=== PATIENT | male | born 1980 | race Caucasian/White ===

== ENCOUNTER 2019-10-15 11:01 | Inpatient (IN) | payer BC, OTHER ==
[~2019-10-15] VITALS: Ht 175 cm; Wt 68.9 kg
[2019-10-15] VITALS (10 sets, daily range): BP systolic 86–113; BP diastolic 58–66
[~2019-10-15 11:01] MED LIST: ALBU17AE23 IH; DOXY100C2 PO; HYDR1TAB8 OP; RT-ALBUTEROL/IPRATROPIUM 3 ML (DUONEB) VIAL ONE
[2019-10-15] MEDS ORDERED: MAGNESIUM SULFATE 1 GM/2 ML VIAL ONE (11:02)
[2019-10-15] MEDS ORDERED: methylPREDNISolone 125 MG (Solu-MEDROL) VIAL ONE (11:04)
[2019-10-15] MEDS ORDERED: MAGNESIUM 1 GM/100 ML IVPB 100 ML IV ONE ×2 (11:04→11:15)
[2019-10-15] MEDS ORDERED: RT-ALBUTEROL SULF 2.5 MG/3 ML PRE-MIX VIAL ONE (11:08)
[2019-10-15 11:15] LABS: BASOPHILS # (AUTO) 0.1 10^3/uL (0.0-0.1); BASOPHILS % (AUTO) 1 % (0-10); EOSINOPHILS # (AUTO) 2.2 10^3/uL (0.0-0.3); EOSINOPHILS % (AUTO) 13 % (0-10); HEMATOCRIT 45 % (40-54); HEMOGLOBIN 15.1 G/DL (13.3-17.7); LYMPHOCYTES # (AUTO) 8.6 X 10^3 (1.0-4.0); LYMPHOCYTES % (AUTO) 49 % (12-44); MEAN CORPUSCULAR HEMOGLOBIN 29 PG (25-34); MEAN CORPUSCULAR HGB CONC 34 G/DL (32-36); MEAN CORPUSCULAR VOLUME 86 FL (80-99); MEAN PLATELET VOLUME 9.4 FL (7.4-10.4); MONOCYTES # (AUTO) 1.8 X 10^3 (0.0-1.0); MONOCYTES % (AUTO) 10 % (0-12); NEUTROPHILS # (AUTO) 4.7 X 10^3 (1.8-7.8); NEUTROPHILS % (AUTO) 27 % (42-75); PLATELET COUNT 300 10^3/uL (130-400); RED CELL DISTRIBUTION WIDTH 12.8 % (10.0-14.5); WHITE BLOOD COUNT 17.4 10^3/uL (4.3-11.0)
[2019-10-15] MEDS ORDERED: KETAMINE/NaCl 50 MG/5 ML SYRINGE (ED ONLY) IV ONE (11:15)
[2019-10-15] MEDS ORDERED: RT-ALBUTEROL SULF 2.5 MG/3 ML PRE-MIX VIAL INH ONE ×2 (11:15→11:45)
[2019-10-15] MEDS ORDERED: NS IV 1000 ML 1,000 ML IV SCH (11:15)
[2019-10-15] MEDS ORDERED: methylPREDNISolone 125 MG (Solu-MEDROL) VIAL IVP ONE (11:15)
[2019-10-15] MEDS ORDERED: ONDANSETRON 4 MG/2 ML (SDV) Z0FRAN IVP ONE ×2 (11:15→11:45)
--- NOTE | 2019-10-15 11:28 | ED Respiratory ---
General Chief Complaint: Respiratory Problems Stated Complaint: ASTHMA ATTACK Nursing Triage Note: TO ROOM 05 WITH COMPLAINTS OF AN ASTHMA ATTACK. Source: patient, family Exam Limitations: no limitations History of Present Illness Date Seen by Provider: Oct 15, 2019 Time Seen by Provider: 11:24 Initial Comments To ER by private vehicle with reports of asthma attack. This began this morning. He took 2 puffs of his albuterol inhaler with improvement and then subsequent recurrence and worsening of the asthma. He's had a long-standing history of asthma. He does report a cough productive in nature with nasal drainage ongoing for several weeks. No fevers. He did have to use his son's albuterol nebulizer this morning Timing/Duration: getting worse Severity: moderate Modifying Factors: Improves With Albuterol Inhaler, Improves With Albuterol Nebulizer Associated Symptoms: cough, nasal congestion, shortness of breath, wheezing Allergies and Home Medications Allergies Coded Allergies: Egg (Unverified Allergy, Severe, RESP PROBLEMS, 08/03/10) Penicillins (Unverified Allergy, Mild, HIVES, 08/03/10) Sulfa(Sulfonamide Antibiotics) (Unverified Allergy, Mild, 08/03/10) Uncoded Allergies: Almonds (Allergy, Mild, 05/08/12) Patient Home Medication List Home Medication List Reviewed: Yes Review of Systems Review of Systems Constitutional: see HPI EENTM: see HPI, nose congestion Respiratory: see HPI, dyspnea on exertion, short of breath, wheezing Genitourinary: no symptoms reported Musculoskeletal: no symptoms reported Skin: no symptoms reported Psychiatric/Neurological: No Symptoms Reported Hematologic/Lymphatic: No Symptoms Reported Immunological/Allergic: no symptoms reported Past Isbzgxd-Guvzkc-Ydcxan Hx Patient Social History Alcohol Use: Rarely Uses Recreational Drug Use: No Smoking Status: Former Smoker Recent Foreign Travel: No Contact w/Someone Who Travel: No Recent Infectious Disease Expo: No Recent Hopitalizations: No Seasonal Allergies Seasonal Allergies: No Past Medical History Surgeries: No Respiratory: Yes Asthma Cardiac: No Neurological: No Genitourinary: No Musculoskeletal: No Endocrine: No HEENT: No Cancer: No Psychosocial: No Integumentary: No Physical Exam Vital Signs - First Documented 10/15/19 11:01 Temp 37.0 Pulse 114 Resp 24 Pulse Ox 98 O2 Delivery Nasal Cannula O2 Flow Rate 4.00 Capillary Refill : Less Than 3 Seconds Height: '" Weight: lbs. oz. kg; 22.00 BMI Method:Stated General Appearance: severe distress, other (oxygen saturation 71% with good waveform, labored breathing, speaks in short phrases.) Eyes: Bilateral Eye Normal Inspection, Bilateral Eye PERRL, Bilateral Eye EOMI HEENT: PERRL/EOMI, normal ENT inspection Neck: non-tender, full range of motion Respiratory: respiratory distress, decreased breath sounds, accessory muscle use Cardiovascular: no murmur, tachycardia Gastrointestinal: normal bowel sounds, non tender, soft Neurologic/Psychiatric: alert, normal mood/affect Skin: normal color, warm/dry Progress/Results/Core Measures Suspected Sepsis Recent Fever Within 48 Hours: No Infection Criteria Present: None New/Unexplained Altered Menta: No Sepsis Screen: No Definite Risk SIRS Temperature: Pulse: 114 Respiratory Rate: 24 Laboratory Tests 10/15/19 11:05: White Blood Count 17.4H Blood Pressure / Mean: Laboratory Tests 10/15/19 11:05: Creatinine 1.01, Platelet Count 300, Total Bilirubin 0.3 Results/Orders Lab Results Laboratory Tests Test 10/15/19 00:00 10/15/19 11:05 Range/Units White Blood Count 17.4 H 4.3-11.0 10^3/uL Red Blood Count 5.16 4.35-5.85 10^6/uL Hemoglobin 15.1 13.3-17.7 G/DL Hematocrit 45 40-54 % Mean Corpuscular Volume 86 80-99 FL Mean Corpuscular Hemoglobin 29 25-34 PG Mean Corpuscular Hemoglobin Concent 34 32-36 G/DL Red Cell Distribution Width 12.8 10.0-14.5 % Platelet Count 300 130-400 10^3/uL Mean Platelet Volume 9.4 7.4-10.4 FL Neutrophils (%) (Auto) 27 L 42-75 % Lymphocytes (%) (Auto) 49 H 12-44 % Monocytes (%) (Auto) 10 0-12 % Eosinophils (%) (Auto) 13 H 0-10 % Basophils (%) (Auto) 1 0-10 % Neutrophils # (Auto) 4.7 1.8-7.8 X 10^3 Lymphocytes # (Auto) 8.6 H 1.0-4.0 X 10^3 Monocytes # (Auto) 1.8 H 0.0-1.0 X 10^3 Eosinophils # (Auto) 2.2 H 0.0-0.3 10^3/uL Basophils # (Auto) 0.1 0.0-0.1 10^3/uL Neutrophils % (Manual) 21 % Lymphocytes % (Manual) 53 % Monocytes % (Manual) 13 % Eosinophils % (Manual) 13 % Blood Morphology Comment NORMAL Sodium Level 141 135-145 MMOL/L Potassium Level 3.9 3.6-5.0 MMOL/L Chloride Level 108 H 98-107 MMOL/L Carbon Dioxide Level 23 21-32 MMOL/L Anion Gap 10 5-14 MMOL/L Blood Urea Nitrogen 13 7-18 MG/DL Creatinine 1.01 0.60-1.30 MG/DL Estimat Glomerular Filtration Rate > 60 BUN/Creatinine Ratio 13 Glucose Level 109 H 70-105 MG/DL Calcium Level 8.4 L 8.5-10.1 MG/DL Corrected Calcium 8.2 L 8.5-10.1 MG/DL Total Bilirubin 0.3 0.1-1.0 MG/DL Aspartate Amino Transf (AST/SGOT) 18 5-34 U/L Alanine Aminotransferase (ALT/SGPT) 18 0-55 U/L Alkaline Phosphatase 83 40-136 U/L Total Protein 7.0 6.4-8.2 GM/DL Albumin 4.3 3.2-4.5 GM/DL My Orders Orders - ROMERO CUNHA [employer] Magnesium 1 Gm/100 Ml Ivpb (Magnesium Purvis (10/15/19 11:04) Methylprednisolone Sod Succ (Solu-Medrol (10/15/19 11:04) Cbc With Automated Diff (10/15/19 11:08) Arterial Blood Gas (10/15/19 11:08) Ed Iv/Invasive Line Start (10/15/19 11:08) Albuterol Pre-Mix Nebs (Rt) (Proventil (10/15/19 11:15) Svn Small Volume Nebulizer (10/15/19 11:08) Methylprednisolone Sod Succ (Solu-Medrol (10/15/19 11:15) Magnesium 1 Gm/100 Ml Ivpb (Magnesium Purvis (10/15/19 11:15) Ketamine Syringe (Ed Only) (Ketamine Syr (10/15/19 11:15) Ondansetron Injection (Zofran Injectio (10/15/19 11:15) Ns Iv 1000 Ml (Sodium Chloride 0.9%) (10/15/19 11:15) Albuterol Pre-Mix Nebs (Rt) (Proventil (10/15/19 11:08) Manual Differential (10/15/19 11:05) Chest 1 View, Ap/Pa Only (10/15/19 11:29) Ondansetron Injection (Zofran Injectio (10/15/19 11:45) Albuterol Pre-Mix Nebs (Rt) (Proventil (10/15/19 11:45) Svn Small Volume Nebulizer (10/15/19 11:39) Comprehensive Metabolic Panel (10/15/19 11:43) Albuterol/Ipra Inhalation Soln (Duoneb I (10/15/19 11:45) Svn Small Volume Nebulizer (10/15/19 11:45) Promethazine Injection (Phenergan Injec (10/15/19 12:00) Medications Given in ED Current Medications Medications Dose Ordered Sig/Mayra Route Start Time Stop Time Status Last Admin Dose Admin Albuterol Sulfate 7.5 mg ONCE ONCE INH 10/15/19 11:45 10/15/19 11:46 DC 10/15/19 11:51 7.5 MG Albuterol Sulfate 12 mg ONCE ONCE INH 10/15/19 11:15 10/15/19 11:16 DC 10/15/19 11:27 12 MG Albuterol/ Ipratropium 3 ml ONCE ONCE INH 10/15/19 11:45 10/15/19 11:47 DC 10/15/19 11:05 3 ML Ketamine HCl 35 mg ONCE ONCE IV 10/15/19 11:15 10/15/19 11:16 DC 10/15/19 11:19 35 MG Magnesium Sulfate/ Dextrose 100 ml @ 100 mls/hr ONCE ONCE IV 10/15/19 11:15 10/15/19 12:14 10/15/19 11:16 100 MLS/HR Methylprednisolone Sodium Succinate 125 mg ONCE ONCE IVP 10/15/19 11:15 10/15/19 11:16 DC 10/15/19 11:16 125 MG Ondansetron HCl 4 mg ONCE ONCE IVP 10/15/19 11:15 10/15/19 11:16 DC 10/15/19 11:15 4 MG Ondansetron HCl 4 mg ONCE ONCE IVP 10/15/19 11:45 10/15/19 11:46 DC 10/15/19 11:37 4 MG Promethazine HCl 12.5 mg ONCE ONCE IVP 10/15/19 12:00 10/15/19 12:01 DC 10/15/19 11:58 12.5 MG Vital Signs/I&O 10/15/19 10/15/19 10/15/19 10/15/19 11:01 11:01 11:16 11:45 Temp 37.0 Pulse 114 Resp 24 B/P (MAP) Pulse Ox 98 73 98 97 O2 Delivery Nasal Cannula Room Air Nasal Cannula Nasal Cannula O2 Flow Rate 4.00 2.00 2.00 Capillary Refill : Less Than 3 Seconds Diagnostic Imaging Diagonstic Imaging: Xray Comments NAME: RAYMOND MONROE [facility] REC#: [id number] PT STATUS: REG ER : 1980 PHYSICIAN: ROMERO CUNHA APRN ADMIT DATE: 10/15/19/ER Draft Date of Exam:10/15/19 CHEST 1 VIEW, AP/PA ONLY INDICATION: Asthma attack. TIME OF EXAM: 11:59 a.m. COMPARISON: No prior studies are available for comparison. FINDINGS: The lungs are clear. No infiltrates are seen. The pulmonary vascularity is normal. The heart size is normal. No effusion or pneumothorax is identified. IMPRESSION: No acute cardiopulmonary process is detected. Dictated on workstation # [id number] Dict: 10/15/19 1204 Trans: 10/15/19 1206 [facility] [id number] Interpreted by: RICARDO ALONSO MD Electronically signed by: Departure Communication (Admissions) On arrival he had essentially no lung sounds, very labored breathing. We started IV access given 125 mg of IV Solu-Medrol, magnesium sulfate 1 g over 15 minutes, Ativan 0.5 mg/kg IV as a bolus. We also started an hour long albuterol treatment during this time towards the end of these interventions he started to have some wheezing on auscultation which was not present initially, indicative of increasing air movement. Oxygen saturation 100% on 3 L and receiving an hour- long breathing treatment on room air. 1140-patient vomited into his nebulizer skilled nursing through the hour-long treatment. For this reason additional 7.5 mg of albuterol was ordered. Also Zofran additional 4 mg ordered. 1202-now has audible wheezing both inspiratory and expiratory. Oxygen saturation 97% on 2 L. His respiratory effort is markedly improved without accessory muscle use near as much as on arrival. He states he is feeling much better. He has had a couple episodes of vomiting from the ketamine, it seems to have subsided at this point. Impression Primary Impression: Asthma exacerbation Qualified Codes: J45.901 - Unspecified asthma with (acute) exacerbation Disposition: ADMITTED INPATIENT Condition: Stable Admissions Decision to Admit Reason: Admit from ER (General) Decision to Admit/Date: Oct 15, 2019 Time/Decision to Admit Time: 11:27 Departure-Patient Inst. Referrals: [facility] (PCP/Family) Primary Care Physician ROMERO CUNHA APRN Oct 15, 2019 11:28
[2019-10-15 11:44] LABS: EOSINOPHILS % (MANUAL) 13 %; LYMPHOCYTES % (MANUAL) 53 %; MONOCYTES % (MANUAL) 13 %; NEUTROPHILS % (MANUAL) 21 %; RBC MORPH NORMAL
[2019-10-15] MEDS ORDERED: RT-ALBUTEROL/IPRATROPIUM 3 ML (DUONEB) VIAL INH ONE (11:45)
[2019-10-15] MEDS ORDERED: PROMETHAZINE INJ 25 MG/ML (PHENERGAN) AMP IVP ONE (12:00)
[2019-10-15 12:01] LABS: ALANINE AMINOTRANSFERASE 18 U/L (0-55); ALBUMIN 4.3 GM/DL (3.2-4.5); ALKALINE PHOSPHATASE 83 U/L (40-136); BILIRUBIN,TOTAL 0.3 MG/DL (0.1-1.0); BUN/CREATININE RATIO 13; CALCIUM 8.4 MG/DL (8.5-10.1); CARBON DIOXIDE 23 MMOL/L (21-32); CHLORIDE 108 MMOL/L (98-107); CREATININE SERUM 1.01 MG/DL (0.60-1.30); GFR ESTIMATED > 60; GLUCOSE 109 MG/DL (70-105); POTASSIUM 3.9 MMOL/L (3.6-5.0); SODIUM 141 MMOL/L (135-145)
--- NOTE | 2019-10-15 12:06 | Diagnostic Imaging Report ---
INDICATION: Asthma attack. TIME OF EXAM: 11:59 a.m. COMPARISON: No prior studies are available for comparison. FINDINGS: The lungs are clear. No infiltrates are seen. The pulmonary vascularity is normal. The heart size is normal. No effusion or pneumothorax is identified. IMPRESSION: No acute cardiopulmonary process is detected. Dictated by: Dictated on workstation # [id number]
--- NOTE | 2019-10-15 12:20 | NUR ---
Pt feeling much better at this time. Pt reports feeling as if ketamine has worn off. Pt still wheezing, but is breathing more comfortably at this time.
--- NOTE | 2019-10-15 12:37 | NUR ---
Pt's ICU room is being cleaned.
[2019-10-15] MEDS ORDERED: CATHETER FLUSH 10 ML SYR IV PRN (14:00)
[2019-10-15] MEDS ORDERED: methylPREDNISolone 125 MG (Solu-MEDROL) VIAL IV SCH ×2 (14:00→14:45)
[2019-10-15] MEDS ORDERED: NS W/KCL 40 MEQ/L 1,000 ML IV SCH (14:00)
[2019-10-15] MEDS ORDERED: RT-ALBUINH INH (14:41)
[2019-10-15] MEDS ORDERED: RT-ALBUTEROL/IPRATROPIUM 3 ML (DUONEB) VIAL ONE (14:43)
--- NOTE | 2019-10-15 14:44 | Occ Therapy Progress Note ---
Therapy Progress Note Received order for OT eval and treat. Chart review completed. Spoke with RN who states pt does not need OT services at this time. Will discontinue OT. LUIS MARQUEZ OT Oct 15, 2019 14:43
[2019-10-15] MEDS: RT-ALBUTEROL/IPRATROPIUM 3 ML (DUONEB) VIAL INH SCH ×3 (14:48→21:51)
--- NOTE | 2019-10-15 14:51 | Pulmonary Consultation ---
History of Present Illness History of Present Illness Date Seen by Provider: Oct 15, 2019 Time Seen by Provider: 14:47 Date of Admission Allergies and Home Medications Allergies Coded Allergies: egg (Unverified Allergy, Severe, RESP PROBLEMS, 08/03/10) Penicillins (Unverified Allergy, Mild, HIVES, 08/03/10) Sulfa (Sulfonamide Antibiotics) (Unverified Allergy, Mild, 08/03/10) Uncoded Allergies: Almonds (Allergy, Mild, 05/08/12) Chicken (Allergy, Unknown, 10/15/19) Home Medications Albuterol Sulfate 1 Puff Puff, 2 PUFF INH Q4H PRN for SHORTNESS OF BREATH, (Reported) Past Octzfcz-Utwexp-Xsbngg Hx Patient Social History Alcohol Use: Rarely Uses Recreational Drug Use: No Smoking Status: Former Smoker Recent Foreign Travel: No Contact w/Someone Who Travel: No Recent Infectious Disease Expo: No Recent Hopitalizations: No Seasonal Allergies Seasonal Allergies: No Past Medical History Surgeries: No Respiratory: Yes Asthma Cardiac: No Neurological: No Genitourinary: No Musculoskeletal: No Endocrine: No HEENT: No Cancer: No Psychosocial: No Integumentary: No Sepsis Event Evaluation Height, Weight, BMI Height: '" Weight: lbs. oz. kg; 22.56 BMI Method:Stated Exam Exam Vital Signs Date Time Temp Pulse Resp B/P (MAP) Pulse Ox O2 Delivery O2 Flow Rate FiO2 10/15/19 14:13 96 Room Air 10/15/19 13:51 122 10/15/19 13:40 37.0 107 22 112/91 99 Room Air 10/15/19 11:45 97 Nasal Cannula 2.00 10/15/19 11:16 98 Nasal Cannula 2.00 10/15/19 11:01 37.0 114 24 73 Room Air 10/15/19 11:01 98 Nasal Cannula 4.00 Height & Weight Height: '" Weight: lbs. oz. kg; 22.56 BMI Method:Stated Capillary Refill: Less Than 3 Seconds Gastrointestinal: normal bowel sounds, non tender, soft Results Lab Laboratory Tests 10/15/19 11:05 Assessment/Plan Assessment/Plan Asthma AE -Duonebs Q 4 -Pulmicort -IVF -Solumedrol Leukocytosis r/o PNA -Start Levaquin -PT is allergic to PCNs -Check urine strep/legionella ag -Check influenza and MRSA swabs - NIMA GOMEZ DO Oct 15, 2019 14:51
[2019-10-15] MEDS: LEVOFLOXACIN 750 MG/150 ML IV 150 ML IV SCH (15:05)
[2019-10-15] MEDS: LACTATED RINGERS 1,000 ML IV SCH ×5 (15:05→23:48)
[2019-10-15] MEDS ORDERED: RT-ALBUTEROL/IPRATROPIUM 3 ML (DUONEB) VIAL INH PRN (16:00)
--- NOTE | 2019-10-15 16:54 | NUR ---
1645 DUE TO CHANGES IN STAFFING CARE OF PT TO THIS RN. PT SITTING UP IN BED WATCHING TELEVISION, PT VERBALIZES NO C/O. THIS RN AGREES WITH PREVIOUS NURSES ASSESSMENT. CALL LIGHT AND OTHER PERSONAL ITEMS WITHIN REACH, WILL CONTINUE TO MONITOR.
[2019-10-15 17:24] LABS: BILIRUBIN,URINE NEGATIVE (NEGATIVE); CLARITY,URINE CLEAR; COLOR,URINE YELLOW; GLUCOSE, URINE (UA) NEGATIVE (NEGATIVE); KETONES,URINE NEGATIVE (NEGATIVE); LEUKOCYTE ESTERASE ,URINE NEGATIVE (NEGATIVE); NITRITE,URINE NEGATIVE (NEGATIVE); PROTEIN,URINE NEGATIVE (NEGATIVE)
[2019-10-15] MEDS: methylPREDNISolone 40 MG/ML (Solu-MEDROL) VIAL IV SCH ×2 (17:43→23:56)
[2019-10-15 17:44] LABS: AMPHETAMINE SCREEN, URINE NEGATIVE (NEGATIVE); BARBITURATE SCREEN URINE NEGATIVE (NEGATIVE); BENZODIAZEPINES SCREEN URINE NEGATIVE (NEGATIVE); CANNABINOID SCREEN, URINE NEGATIVE (NEGATIVE); COCAINE SCREEN URINE NEGATIVE (NEGATIVE); METHADONE STAT NEGATIVE (NEGATIVE); METHAMPHETAMINE SCREEN URINE S NEGATIVE (NEGATIVE); OPIATE SCREEN URINE NEGATIVE (NEGATIVE); OXYCODONE STAT NEGATIVE (NEGATIVE); PROPOXYPHENE STAT NEGATIVE (NEGATIVE); TRICYCLIC ANTIDEPRESSANTS SCRE NEGATIVE (NEGATIVE)
[2019-10-15 17:57] LABS: AMORPHOUS SEDIMENT,UR FEW AMOR URATES /LPF; BACTERIA,URINE TRACE /HPF; WBC,URINE 0-2 /HPF
[2019-10-15] MEDS ORDERED: RT-BUDESONIDE NEBS 0.5 MG/2ML (PULMICORT) AMP INH SCH (21:00)
[2019-10-16] VITALS (12 sets, daily range): BP systolic 100–131; BP diastolic 57–75
[2019-10-16] MEDS: RT-ALBUTEROL/IPRATROPIUM 3 ML (DUONEB) VIAL INH SCH ×6 (02:15→22:51)
[2019-10-16 03:25] LABS: BASOPHILS % (AUTO) 0 % (0-10); EOSINOPHILS % (AUTO) 0 % (0-10); HEMATOCRIT 39 % (40-54); HEMOGLOBIN 13.1 G/DL (13.3-17.7); LYMPHOCYTES # (AUTO) 1.1 X 10^3 (1.0-4.0); LYMPHOCYTES % (AUTO) 5 % (12-44); MEAN CORPUSCULAR HEMOGLOBIN 29 PG (25-34); MEAN CORPUSCULAR HGB CONC 34 G/DL (32-36); MEAN CORPUSCULAR VOLUME 86 FL (80-99); MEAN PLATELET VOLUME 10.2 FL (7.4-10.4); MONOCYTES # (AUTO) 0.6 X 10^3 (0.0-1.0); MONOCYTES % (AUTO) 3 % (0-12); NEUTROPHILS % (AUTO) 92 % (42-75); PLATELET COUNT 225 10^3/uL (130-400); RED CELL DISTRIBUTION WIDTH 12.8 % (10.0-14.5); WHITE BLOOD COUNT 21.7 10^3/uL (4.3-11.0)
[2019-10-16 03:54] LABS: ALANINE AMINOTRANSFERASE 15 U/L (0-55); ALBUMIN 3.7 GM/DL (3.2-4.5); ALKALINE PHOSPHATASE 57 U/L (40-136); BILIRUBIN,TOTAL 0.3 MG/DL (0.1-1.0); BUN/CREATININE RATIO 12; CALCIUM 8.9 MG/DL (8.5-10.1); CARBON DIOXIDE 19 MMOL/L (21-32); CHLORIDE 110 MMOL/L (98-107); CREATININE SERUM 0.84 MG/DL (0.60-1.30); GFR ESTIMATED > 60; GLUCOSE 152 MG/DL (70-105); PHOSPHORUS 2.5 MG/DL (2.3-4.7); SODIUM 141 MMOL/L (135-145); TOTAL PROTEIN 5.9 GM/DL (6.4-8.2)
--- NOTE | 2019-10-16 05:40 | Pulmonary Progress Note ---
Subjective Time Seen by a Provider: 05:41 Subjective/Events-last exam Pt is doing much better today. Will transfer to 4th floor. Sepsis Event Evaluation Height, Weight, BMI Height: '" Weight: lbs. oz. kg; 22.56 BMI Method:Stated Exam Exam Vital Signs Date Time Temp Pulse Resp B/P (MAP) Pulse Ox O2 Delivery O2 Flow Rate FiO2 10/16/19 05:00 106 16 107/67 (80) 94 Room Air 10/16/19 04:00 105 19 109/65 (80) 95 Room Air 10/16/19 03:55 36.3 10/16/19 03:54 93 Room Air 10/16/19 03:00 96 14 106/65 (79) 95 Room Air 10/16/19 02:00 103 15 102/62 (75) 94 Room Air 10/16/19 01:00 111 10/16/19 01:00 107 13 111/63 (79) 96 Room Air 10/16/19 00:00 36.6 10/16/19 00:00 118 22 131/70 (90) 96 Room Air 10/16/19 00:00 96 Room Air 10/15/19 23:00 123 17 108/58 (75) 96 Room Air 10/15/19 22:00 118 17 112/60 (77) 98 Room Air 10/15/19 21:52 97 Room Air 10/15/19 21:00 117 15 109/63 (78) 98 Room Air 10/15/19 20:00 36.4 10/15/19 20:00 117 18 86/61 (69) 96 Room Air 10/15/19 20:00 96 Room Air 10/15/19 19:00 118 19 107/66 (80) 98 Room Air 10/15/19 19:00 123 10/15/19 18:34 100 Room Air 10/15/19 18:00 112 18 102/62 (75) 97 Room Air 10/15/19 17:00 120 15 109/64 (79) 97 Room Air 10/15/19 16:00 110 17 105/58 (74) 97 Room Air 10/15/19 16:00 36.9 10/15/19 15:22 97 Room Air 10/15/19 15:00 123 10 113/65 (81) 96 Room Air 10/15/19 14:48 97 Room Air 10/15/19 14:13 96 Room Air 10/15/19 14:00 117 16 101/66 (78) 96 Room Air 10/15/19 13:51 122 10/15/19 13:40 37.0 107 22 112/91 99 Room Air 10/15/19 11:45 97 Nasal Cannula 2.00 10/15/19 11:16 98 Nasal Cannula 2.00 10/15/19 11:01 37.0 114 24 73 Room Air 10/15/19 11:01 98 Nasal Cannula 4.00 I & O 10/16/19 07:00 Intake Total 4410 ml Output Total 4025 ml Balance 385 ml Height & Weight Height: '" Weight: lbs. oz. kg; 22.56 BMI Method:Stated General Appearance: No Apparent Distress, WD/WN, Anxious HEENT: PERRL/EOMI, Normal ENT Inspection, Pharynx Normal Neck: Full Range of Motion, Non Tender, Supple Respiratory: Chest Non Tender, No Accessory Muscle Use, No Respiratory Distress, Decreased Breath Sounds, Wheezing Cardiovascular: Regular Rate, Rhythm, No Edema Capillary Refill: Less Than 3 Seconds Gastrointestinal: normal bowel sounds, non tender, soft Extremity: Normal Capillary Refill, Normal Inspection, No Pedal Edema Neurologic/Psychiatric: Alert, Oriented x3 Skin: Normal Color, Warm/Dry Lymphatic: No Adenopathy Results Lab Laboratory Tests 10/15/19 11:05 10/16/19 02:52 Assessment/Plan Assessment/Plan Asthma AE -Duonebs Q 4 -Pulmicort -- change to Advair -IVF -Solumedrol -- Change to prednisone taper. Leukocytosis r/o PNA -Start Levaquin -PT is allergic to PCNs -Check urine strep/legionella ag -Check influenza and MRSA swabs NIMA GOMEZ DO Oct 16, 2019 05:40
[2019-10-16] MEDS: LACTATED RINGERS 1,000 ML IV SCH (05:49)
[2019-10-16] MEDS ORDERED: RT-ADVAIR HFA 115/21 MCG PER PUFF IH ONE (06:12)
[2019-10-16] MEDS ORDERED: RT-BUDESONIDE NEBS 0.5 MG/2ML (PULMICORT) AMP ONE (06:12)
[2019-10-16] MEDS: RT-ADVAIR HFA 115/21 MCG PER PUFF IH SCH ×2 (07:29→19:17)
[2019-10-16] MEDS: predniSONE 10 MG TAB PO SCH (07:55)
--- NOTE | 2019-10-16 09:06 | History & Physical ---
HPI History of Present Illness: Had severe shortness of breath yesterday morning. He doesn't know what caused it. He normally uses albuterol inhaler relatively rarely, in the summer maybe every 3-4 days, since the fall and winter had been needing twice per day. As a child was on inhaled steroids but hasn't been recently. He denies illness prior to this, but does have chronic sinus congestion for which he had taken claritin. No fever, feels he had cough related to sinus drainage. Date seen by provider: Oct 16, 2019 Time Seen by Provider: 10:23 Attending Physician Octavia Cummins MD PCP [place] [place] Consult Date of Admission Oct 15, 2019 at 12:09 Home Medications Home Medications Reviewed patient Home Medication Reconciliation performed by pharmacy medication reconciliations microwave technician and/or nursing. Patients Allergies have been reviewed. Allergies Coded Allergies: egg (Unverified Allergy, Severe, RESP PROBLEMS, 08/03/10) Penicillins (Unverified Allergy, Mild, HIVES, 08/03/10) Sulfa (Sulfonamide Antibiotics) (Unverified Allergy, Mild, 08/03/10) Uncoded Allergies: Almonds (Allergy, Mild, 05/08/12) Chicken (Allergy, Unknown, 10/15/19) SBD-Nakgtr-Blwbgi Hx Patient Social History Alcohol Use: Rarely Uses Recreational Drug Use: No Smoking Status: Former Smoker Recent Foreign Travel: No Contact w/other who traveled: No Recent Hopitalizations: No Recent Infectious Disease Expo: No Past Medical History PMHx: Asthma Allergies PSurgHx: Denies Family Medical History Significant Family History: Heart Disease (both grandfathers) Review of Systems ([facility]) Constitutional: No fever EENTM: nose congestion Respiratory: see HPI Cardiovascular: No chest pain Gastrointestinal: No abdominal pain, No constipation, No diarrhea, No nausea; vomiting (occasional vomiting mucous in the morning when he has a lot of congestion) Genitourinary: No dysuria Musculoskeletal: No joint pain, No muscle pain Skin: No rash Psychiatric/Neurological: Denies Anxiety, Denies Depressed Reviewed Test Results Reviewed Test Results Lab Laboratory Tests Test 10/15/19 11:05 10/15/19 16:20 10/16/19 02:52 Range/Units White Blood Count 17.4 H 21.7 H 4.3-11.0 10^3/uL Red Blood Count 5.16 4.48 4.35-5.85 10^6/uL Hemoglobin 15.1 13.1 L 13.3-17.7 G/DL Hematocrit 45 39 L 40-54 % Mean Corpuscular Volume 86 86 80-99 FL Mean Corpuscular Hemoglobin 29 29 25-34 PG Mean Corpuscular Hemoglobin Concent 34 34 32-36 G/DL Red Cell Distribution Width 12.8 12.8 10.0-14.5 % Platelet Count 300 225 130-400 10^3/uL Mean Platelet Volume 9.4 10.2 7.4-10.4 FL Neutrophils (%) (Auto) 27 L 92 H 42-75 % Lymphocytes (%) (Auto) 49 H 5 L 12-44 % Monocytes (%) (Auto) 10 3 0-12 % Eosinophils (%) (Auto) 13 H 0 0-10 % Basophils (%) (Auto) 1 0 0-10 % Neutrophils # (Auto) 4.7 20.0 H 1.8-7.8 X 10^3 Lymphocytes # (Auto) 8.6 H 1.1 1.0-4.0 X 10^3 Monocytes # (Auto) 1.8 H 0.6 0.0-1.0 X 10^3 Eosinophils # (Auto) 2.2 H 0.0 0.0-0.3 10^3/uL Basophils # (Auto) 0.1 0.0 0.0-0.1 10^3/uL Neutrophils % (Manual) 21 % Lymphocytes % (Manual) 53 % Monocytes % (Manual) 13 % Eosinophils % (Manual) 13 % Blood Morphology Comment NORMAL Sodium Level 141 141 135-145 MMOL/L Potassium Level 3.9 4.0 3.6-5.0 MMOL/L Chloride Level 108 H 110 H 98-107 MMOL/L Carbon Dioxide Level 23 19 L 21-32 MMOL/L Anion Gap 10 12 5-14 MMOL/L Blood Urea Nitrogen 13 10 7-18 MG/DL Creatinine 1.01 0.84 0.60-1.30 MG/DL Estimat Glomerular Filtration Rate > 60 > 60 BUN/Creatinine Ratio 13 12 Glucose Level 109 H 152 H 70-105 MG/DL Calcium Level 8.4 L 8.9 8.5-10.1 MG/DL Corrected Calcium 8.2 L 9.1 8.5-10.1 MG/DL Total Bilirubin 0.3 0.3 0.1-1.0 MG/DL Aspartate Amino Transf (AST/SGOT) 18 12 5-34 U/L Alanine Aminotransferase (ALT/SGPT) 18 15 0-55 U/L Alkaline Phosphatase 83 57 40-136 U/L Total Protein 7.0 5.9 L 6.4-8.2 GM/DL Albumin 4.3 3.7 3.2-4.5 GM/DL Urine Color YELLOW Urine Clarity CLEAR Urine pH 6.0 5-9 Urine Specific [place] 1.020 1.016-1.022 Urine Protein NEGATIVE NEGATIVE Urine Glucose (UA) NEGATIVE NEGATIVE Urine Ketones NEGATIVE NEGATIVE Urine Nitrite NEGATIVE NEGATIVE Urine Bilirubin NEGATIVE NEGATIVE Urine Urobilinogen 0.2 < = 1.0 MG/DL Urine Leukocyte Esterase NEGATIVE NEGATIVE Urine RBC (Auto) NEGATIVE NEGATIVE Urine RBC NONE /HPF Urine WBC 0-2 /HPF Urine Crystals PRESENT H /LPF Urine Amorphous Sediment FEW DYLAN URATES H /LPF Urine Bacteria TRACE /HPF Urine Casts NONE /LPF Urine Mucus SMALL H /LPF Urine Culture Indicated NO Urine Opiates Screen NEGATIVE NEGATIVE Urine Oxycodone Screen NEGATIVE NEGATIVE Urine Methadone Screen NEGATIVE NEGATIVE Urine Propoxyphene Screen NEGATIVE NEGATIVE Urine Barbiturates Screen NEGATIVE NEGATIVE Ur Tricyclic Antidepressants Screen NEGATIVE NEGATIVE Urine Phencyclidine Screen NEGATIVE NEGATIVE Urine Amphetamines Screen NEGATIVE NEGATIVE Urine Methamphetamines Screen NEGATIVE NEGATIVE Urine Benzodiazepines Screen NEGATIVE NEGATIVE Urine Cocaine Screen NEGATIVE NEGATIVE Urine Cannabinoids Screen NEGATIVE NEGATIVE Phosphorus Level 2.5 2.3-4.7 MG/DL Magnesium Level 2.0 1.6-2.4 MG/DL Physical Exam-([facility]) Physical Exam Vital Signs VS - Last 72 Hours, by Label 10/15/19 10/15/19 10/15/19 10/15/19 11:01 11:01 11:16 11:45 Temp 37.0 Pulse 114 Resp 24 B/P (MAP) Pulse Ox 98 73 98 97 O2 Delivery Nasal Cannula Room Air Nasal Cannula Nasal Cannula O2 Flow Rate 4.00 2.00 2.00 10/15/19 10/15/19 10/15/19 10/15/19 13:40 13:51 14:00 14:13 Temp 37.0 Pulse 107 122 117 Resp 22 16 B/P (MAP) 112/91 101/66 (78) Pulse Ox 99 96 96 O2 Delivery Room Air Room Air Room Air 10/15/19 10/15/19 10/15/19 10/15/19 14:48 15:00 15:22 16:00 Temp 36.9 Pulse 123 Resp 10 B/P (MAP) 113/65 (81) Pulse Ox 97 96 97 O2 Delivery Room Air Room Air Room Air 10/15/19 10/15/19 10/15/19 10/15/19 16:00 17:00 18:00 18:34 Pulse 110 120 112 Resp 17 15 18 B/P (MAP) 105/58 (74) 109/64 (79) 102/62 (75) Pulse Ox 97 97 97 100 O2 Delivery Room Air Room Air Room Air Room Air 10/15/19 10/15/19 10/15/19 10/15/19 19:00 19:00 20:00 20:00 Pulse 123 118 117 Resp 19 18 B/P (MAP) 107/66 (80) 86/61 (69) Pulse Ox 98 96 96 O2 Delivery Room Air Room Air Room Air 10/15/19 10/15/19 10/15/19 10/15/19 20:00 21:00 21:52 22:00 Temp 36.4 Pulse 117 118 Resp 15 17 B/P (MAP) 109/63 (78) 112/60 (77) Pulse Ox 98 97 98 O2 Delivery Room Air Room Air Room Air 10/15/19 10/16/19 10/16/19 10/16/19 23:00 00:00 00:00 00:00 Temp 36.6 Pulse 123 118 Resp 17 22 B/P (MAP) 108/58 (75) 131/70 (90) Pulse Ox 96 96 96 O2 Delivery Room Air Room Air Room Air 10/16/19 10/16/19 10/16/19 10/16/19 01:00 01:00 02:00 03:00 Pulse 107 111 103 96 Resp 13 15 14 B/P (MAP) 111/63 (79) 102/62 (75) 106/65 (79) Pulse Ox 96 94 95 O2 Delivery Room Air Room Air Room Air 10/16/19 10/16/19 10/16/19 10/16/19 03:54 03:55 04:00 05:00 Temp 36.3 Pulse 105 106 Resp 19 16 B/P (MAP) 109/65 (80) 107/67 (80) Pulse Ox 93 95 94 O2 Delivery Room Air Room Air Room Air 10/16/19 10/16/19 10/16/19 10/16/19 06:00 07:00 07:00 07:30 Pulse 108 104 103 Resp 18 14 B/P (MAP) 101/75 (84) 100/73 (82) Pulse Ox 94 96 98 O2 Delivery Room Air Room Air Room Air 10/16/19 10/16/19 10/16/19 10/16/19 07:35 07:55 08:00 08:00 Temp 36.6 Pulse 135 Resp 20 B/P (MAP) 111/64 (80) Pulse Ox 89 98 O2 Delivery Room Air Room Air Room Air Capillary Refill : Less Than 3 Seconds General Appearance: WD/WN, no apparent distress Respiratory: No decreased breath sounds, No accessory muscle use; wheezing Cardiovascular: no murmur, tachycardia Gastrointestinal: normal bowel sounds, non tender, soft Extremities: no pedal edema Neurologic/Psychiatric: alert, normal mood/affect Skin: normal color, warm/dry Assessment/Plan Assessment/Plan Admission Status: Inpatient Order (span 2 midnights) Reason for Inpatient Admission: Severe asthma exacerbation with hypoxia, will require steroid tapers (1) Asthma exacerbation Status: Acute Assessment & Plan: Continue inhaled steroid, Duonebs. Solumedrol changed to prednisone today. On room air this am, markedly improved but still wheezing. Qualifiers: Qualified Codes: J45.51 - Severe persistent asthma with (acute) exacerbation (2) Leukocytosis Status: Acute Assessment & Plan: Suspect related to steroids and reactive, started on levofloxacin per Dr. Hernandez. (3) DVT prophylaxis Status: Acute Assessment & Plan: Low risk, ambulate. Clinical Quality Measures DVT/VTE Risk/Contraindication: RFS Level Per Nursing on Admit: 0=No Risk/No VTE PPX Copy Copies To 1: NICHOL TORRES MD, BETHANY N MD Oct 16, 2019 09:06
--- NOTE | 2019-10-16 09:14 | Diagnostic Imaging Report ---
INDICATION: Asthma, shortness of breath COMPARISON: 10/15/2019 FINDINGS: Single view of the chest demonstrates clear lungs bilaterally. The heart is normal. There is no pneumothorax. Osseous structures normal. IMPRESSION: Negative chest Dictated by: Dictated on workstation # [id number]
[2019-10-16] MEDS: LEVOFLOXACIN 750 MG/150 ML IV 150 ML IV SCH (14:54)
--- NOTE | 2019-10-16 16:01 | NUR ---
1545 PT TO ROOM 409 VIA W/C ACCOMPANIED BY THIS RN, REPORT GIVEN TO TIFFANIE ROBERTS. ALL PERSONAL BELONGINGS SENT WITH PT.
[2019-10-17 00:05] VITALS: BP 120/72
[2019-10-17 04:00] VITALS: BP 108/57
--- NOTE | 2019-10-17 05:49 | Pulmonary Progress Note ---
Subjective Time Seen by a Provider: 05:48 Subjective/Events-last exam Pt appears to be doing better. Sepsis Event Evaluation Height, Weight, BMI Height: '" Weight: lbs. oz. kg; 22.56 BMI Method:Stated Exam Exam Vital Signs Date Time Temp Pulse Resp B/P (MAP) Pulse Ox O2 Delivery O2 Flow Rate FiO2 10/17/19 04:00 36.7 115 20 108/57 (74) 96 Room Air 10/17/19 02:26 95 Room Air 10/17/19 00:05 36.8 114 20 120/72 (88) 95 Room Air 10/16/19 22:51 95 Room Air 10/16/19 20:11 36.8 123 20 104/57 (73) 96 Room Air 10/16/19 20:10 95 Room Air 10/16/19 19:15 98 Room Air 10/16/19 16:24 37.3 125 22 106/69 (81) 93 Room Air 10/16/19 15:02 91 Room Air 10/16/19 13:00 113 10/16/19 11:35 37.0 118 18 106/74 (85) 93 Room Air 10/16/19 08:00 98 Room Air 10/16/19 08:00 135 20 111/64 (80) 89 Room Air 10/16/19 07:55 36.6 10/16/19 07:35 Room Air 10/16/19 07:30 98 Room Air 10/16/19 07:00 103 14 100/73 (82) 96 Room Air 10/16/19 07:00 104 10/16/19 06:00 108 18 101/75 (84) 94 Room Air I & O 10/17/19 07:00 Intake Total 1790 ml Output Total 1550 ml Balance 240 ml Height & Weight Height: '" Weight: lbs. oz. kg; 22.56 BMI Method:Stated General Appearance: No Apparent Distress, WD/WN, Anxious HEENT: PERRL/EOMI, Normal ENT Inspection, Pharynx Normal Neck: Full Range of Motion, Non Tender, Supple Respiratory: Chest Non Tender, No Accessory Muscle Use, No Respiratory Distress, Decreased Breath Sounds, Wheezing Cardiovascular: Regular Rate, Rhythm, No Edema Capillary Refill: Less Than 3 Seconds Gastrointestinal: normal bowel sounds, non tender, soft Extremity: Normal Capillary Refill, Normal Inspection, No Pedal Edema Neurologic/Psychiatric: Alert, Oriented x3 Skin: Normal Color, Warm/Dry Lymphatic: No Adenopathy Results Lab Laboratory Tests 10/15/19 11:05 10/16/19 02:52 Assessment/Plan Assessment/Plan Asthma AE -Duonebs Q 4 - Advair -Solumedrol -- Change to prednisone taper. Leukocytosis r/o PNA -Levaquin -PT is allergic to PCNs -Check urine strep/legionella ag -Check influenza and MRSA swabs NIMA GOMEZ DO Oct 17, 2019 05:49
[2019-10-17] MEDS: RT-ADVAIR HFA 115/21 MCG PER PUFF IH SCH (06:35)
[2019-10-17] MEDS: RT-ALBUTEROL/IPRATROPIUM 3 ML (DUONEB) VIAL INH SCH ×2 (06:35→10:42)
[2019-10-17 08:00] VITALS: BP 121/85
[2019-10-17] MEDS: predniSONE 10 MG TAB PO SCH (08:30)
[2019-10-17] MEDS ORDERED: FLUT12AE4 IH (10:57)
[2019-10-17] MEDS ORDERED: MONT10TA21 PO (10:57)
[2019-10-17] MEDS ORDERED: LEVO750T39 PO (10:57)
[2019-10-17] MEDS ORDERED: PRD10T PO (10:57)
--- NOTE | 2019-10-17 10:59 | Discharge Summary ---
Discharge Summary Hospital Course Problems/Diagnosis: (1) Asthma exacerbation Status: Acute Assessment & Plan: Continue inhaled steroid, Duonebs. Solumedrol changed to prednisone today. On room air this am, markedly improved but still wheezing. 10/17 on oral prednisone and room air. Discharged with script for Advair and prednisone and singulair. Qualifiers: Qualified Codes: J45.51 - Severe persistent asthma with (acute) exacerbation (2) Leukocytosis Status: Acute Assessment & Plan: Suspect related to steroids and reactive, started on levofloxacin per Dr. Hernandez. Discharged with 5 days of levofloxacin, legionalla and strep pneumo antigen pending at d/c. Hospital Course Date of Admission: Oct 15, 2019 at 12:09 Admission Diagnosis : Family Physician/Provider: [place] [place] Date of Discharge: 10/17/19 Discharge Diagnosis: [ ] Hospital Course: [ ] Labs and Pending Lab Test: Microbiology 10/15/19 Influenza Types A,B Antigen (JINNY) - Final, Complete Home Meds Active Singulair (Montelukast Sodium) 10 Mg Tablet 10 Mg PO DAILY Levofloxacin 750 Mg Tablet 750 Mg PO DAILY 5 Days Prednisone 10 Mg Tab 0 PO DAILY Take 5 tabs (50mg) daily, decrease by 1 tab (10mg) daily. Advair Hfa 115-21 Mcg Inhaler (Fluticasone/Salmeterol) 12 Gm Hfa.aer.ad 2 Puff IH BID@20 Reported Proair Hfa (Albuterol Sulfate) 1 Puff Puff 2 Puff INH Q4H PRN Assessment/Pt DC Instructions Follow up with Dr. Torres on 10/20 at 2:20 pm. Discharge Diet: No Restrictions Activity as Tolerated: Yes Discharge Physical Examination Allergies: Coded Allergies: egg (Unverified Allergy, Severe, RESP PROBLEMS, 08/03/10) Penicillins (Unverified Allergy, Mild, HIVES, 08/03/10) Sulfa (Sulfonamide Antibiotics) (Unverified Allergy, Mild, 08/03/10) Uncoded Allergies: Almonds (Allergy, Mild, 05/08/12) Chicken (Allergy, Unknown, 10/15/19) General Appearance: No Apparent Distress, WD/WN Respiratory: No Accessory Muscle Use, No Respiratory Distress; Wheezing Cardiovascular: Regular Rate, Rhythm, No Murmur Skin: Normal Color, Warm/Dry Neurologic/Psychiatric: Alert Copy Copies To 1: NICHOL TORRES MD Clinical Quality Measures DVT/VTE Risk/Contraindication: RFS Level Per Nursing on Admit: 0=No Risk/No VTE PPX WILMA MISTRY MD Oct 17, 2019 10:59
[2019-10-17 11:28] VITALS: BP 121/85
--- NOTE | 2019-10-17 11:29 | NUR ---
DISMISSED PER AMBULATORY, ALERT, DENIES PAIN OR SOB, DISCHARGE INSTRUCTIONS GIVEN, VERBALIZED UNDERSTANDING OF NEW PRESCRIPTIONS AND FOLLOW UP WITH DR GOMEZ
--- NOTE | 2019-10-20 09:15 | Physician Query Clarification ---
PQ-Uncertain Diagnosis Admission/Discharge Admission Date: Oct 15, 2019 at 12:09 Discharge Date: Oct 17, 2019 at 11:34 The medical record reflects the following clinical scenario: History/Risk Factors: Severe asthma exacerbation with hypoxia Clinical Findings: Leukocytosis r/o PNA Leionella and strep pneumo antigen pending at d/c Treatment: Start Levaquin Question: Is Pneumonia a clinically valid diagnosis? Pneumonia was documented in the pulmonology notes from 10/15-10/17 with no further documentation in the medical record. Please document a response in Progress Note or Discharge Summary. 1. Yes, pneumonia is a clinically valid, condition resolved. 2. No, pneumonia. Condition ruled out. 3. Other, with explanation of clinical findings. 4. Undetermined, no explanation for clinical findings. PHYSICIAN RESPONSE Diagnosis clinically valid: Undetermined Please remember a lack of response to the above will prompt a phone page by CDI/Coding staff. In responding to this query, please exercise your independent professional judgment. The purpose of this communication is to more accurately reflect the complexity of your patients condition. The fact that a question is asked does not imply that any particular answer is desired or expected. Thank you for your timely response to this clarification. Requestors name: Amrita THIS PHYSICIAN QUERY FORM IS A PERMANENT PART OF THE MEDICAL RECORD ERICH SHELBY Oct 20, 2019 09:15 WILMA MISTRY MD Oct 24, 2019 16:11
== END 2019-10-17 11:34 | disposition home or self-care (01) | DRG 203 ==
LOC: EDUNIT# 11:01 → ER 11:03 → ICU 12:09 → 4TH 10-16 15:47
PROVIDERS: ADMIT Family Medicine; ATTEND Family Medicine
DX: J45.901 Unspecified asthma with (acute) exacerbation (principal); T38.0X5A Adverse effect of glucocorticoids and synthetic analogues, initial encounter; D72.828 Other elevated white blood cell count; Z88.0 Allergy status to penicillin; Z87.891 Personal history of nicotine dependence
CPT/HCPCS: 36415; 71045; 80053; 80306; 81000; 83735; 84100; 85007; 85025; 85027; 87081; 87449; 87804; 87899; 94640; 94760; 96361; 96374; 96375

== ENCOUNTER 2020-02-20 09:05 | Emergency (ER) | payer BC ==
[~2020-02-20] VITALS: Ht 180.3 cm; Wt 73.0 kg
[~2020-02-20 09:05] MED LIST changes: +FLUT12AE4 IH; +LEVO750T39 PO; +MONT10TA21 PO; +PRD10T PO; +RT-ALBUINH INH; -RT-ALBUTEROL/IPRATROPIUM 3 ML (DUONEB) VIAL ONE
[2020-02-20 09:24] LABS: BILIRUBIN,URINE NEGATIVE (NEGATIVE); CLARITY,URINE CLEAR; COLOR,URINE YELLOW; GLUCOSE, URINE (UA) NEGATIVE (NEGATIVE); KETONES,URINE NEGATIVE (NEGATIVE); LEUKOCYTE ESTERASE ,URINE NEGATIVE (NEGATIVE); NITRITE,URINE NEGATIVE (NEGATIVE); PH,URINE 7.5 (5-9); PROTEIN,URINE TRACE (NEGATIVE)
--- NOTE | 2020-02-20 09:24 | ED Back Pain ---
General Stated Complaint: MIDDLE BACK PAIN Source of Information: Patient Exam Limitations: No Limitations History of Present Illness Date Seen by Provider: February 20, 2020 Time Seen by Provider: 09:11 Initial Comments The patient presents to ER by private conveyance from home with chief complaint of one day of pain in his middle back. It is nonradiating. It's worse with movement. 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 He has not taken anything for the pain. He did not go see chiropractor or primary care yet. He's not having saddle anesthesia, numbness, inability to walk, falls, recent trauma, loss of control of bowel or bladder. He has no cough shortness of breath chest pain, nausea, dysuria or hematuria. No history of kidney stones. No previous history of back pain, surgery or imaging. Allergies and Home Medications Allergies Coded Allergies: egg (Unverified Allergy, Severe, RESP PROBLEMS, 08/03/10) Penicillins (Unverified Allergy, Mild, HIVES, 08/03/10) Sulfa (Sulfonamide Antibiotics) (Unverified Allergy, Mild, 08/03/10) Uncoded Allergies: Almonds (Allergy, Mild, 05/08/12) Chicken (Allergy, Unknown, 10/15/19) Home Medications Albuterol Sulfate 1 Puff Puff, 2 PUFF INH Q4H PRN for SHORTNESS OF BREATH, (Reported) Fluticasone/Salmeterol 12 Gm Hfa.aer.ad, 2 PUFF IH BID@ Prescribed by: WILMA MISTRY on 10/17/19 1057 Levofloxacin 750 Mg Tablet, 750 MG PO DAILY Prescribed by: WILMA MISTRY on 10/17/19 1057 Montelukast Sodium 10 Mg Tablet, 10 MG PO DAILY Prescribed by: WILMA MISTRY on 10/17/19 1057 Prednisone 10 Mg Tab, 0 PO DAILY Take 5 tabs (50mg) daily, decrease by 1 tab (10mg) daily. Prescribed by: WILMA MISTRY on 10/17/19 1057 Patient Home Medication List Home Medication List Reviewed: Yes Review of Systems Constitutional: No chills, No diaphoresis EENTM: No ear discharge, No ear pain Respiratory: No cough, No short of breath Cardiovascular: No chest pain, No edema Gastrointestinal: No abdominal pain, No nausea, No vomiting Genitourinary: No discharge, No dysuria Musculoskeletal: see HPI, back pain; No joint pain All Other Systems Reviewed Negative Unless Noted: Yes Past Omvfdsg-Ojellw-Adsynv Hx Patient Social History Alcohol Use: Denies Use Recreational Drug Use: No Smoking Status: Never a Smoker Recent Foreign Travel: No Contact w/Someone Who Travel: No Recent Hopitalizations: No Seasonal Allergies Seasonal Allergies: No Past Medical History Surgeries: No Respiratory: Yes Asthma Cardiac: No Neurological: No Genitourinary: No Musculoskeletal: No Endocrine: No HEENT: No Cancer: No Psychosocial: No Integumentary: No Family Medical History Heart Disease Physical Exam Vital Signs Capillary Refill : Height, Weight, BMI Height: '" Weight: lbs. oz. kg; 22.56 BMI Method:Stated General Appearance: WD/WN, Mild Distress HEENT: PERRL/EOMI, Moist Mucous Membranes Neck: Full Range of Motion, Normal Inspection Cardiovascular: No Edema, Normal Peripheral Pulses Respiratory: Normal Breath Sounds, No Accessory Muscle Use, No Respiratory Distress Peripheral Pulses: 2+ Radial Pulses (R), 2+ Radial Pulses (L) Back: Normal Inspection, No CVA Tenderness, No Vertebral Tenderness, Muscle Spasm (bilateral thoracic spine) Extremity: Normal Capillary Refill, No Pedal Edema Neurologic/Psychiatric: Alert, Oriented x3, No Motor/Sensory Deficits, Normal Mood/Affect Skin: Normal Color, Warm/Dry Progress/Results/Core Measures Results/Orders My Orders Orders - CHIKI GREGG Ua Culture If Indicated (02/20/20 09:11) Progress Progress Note : Time: 09:21 Progress Note No red flag signs. Neurologically intact. He has not initiated any pain medicines. Wearing to write him a prescription for naproxen and cyclobenzaprine as well as a work note. Departure Impression Primary Impression: Acute thoracic back pain Qualified Codes: M54.6 - Pain in thoracic spine Disposition: 01 HOME, SELF-CARE Condition: Stable Departure-Patient Inst. Decision time for Depature: 09:22 Referrals: [facility] (PCP/Family) Primary Care Physician Patient Instructions: Upper Back Pain (DC) Add. Discharge Instructions: Start taking the naproxen 1 tablet twice a day on a scheduled basis. Do not excess with Advil/Aleve/ibuprofen or other NSAIDs. You may take Tylenol 1000 mg every 8 hours as needed for breakthrough pain. Topical creams such as icy hot or Biofreeze can be helpful. Heating pads can be helpful. Lidocaine patches or creams may be helpful. Cyclobenzaprine 1 tablet every 8 hours as needed for muscle spasms. Secondly endocrine will cause drowsiness and should not be mixed with alcohol, long drives or operating heavy machinery. Get some rest for the next couple days. One week of light duty. Follow-up appointment in 1-2 weeks with primary care if not improving. Scripts Naproxen (Naprosyn) 500 Mg Tablet 500 MG PO BID for 14 Days, #30 TAB 0 Refills Prov: CHIKI GREGG 02/20/20 Cyclobenzaprine HCl (Cyclobenzaprine HCl) 10 Mg Tablet 10 MG PO Q8H PRN for SPASMS, #15 TAB 0 Refills Prov: CHIKI GREGG 02/20/20 Work/School Note: Work Release Form Date Seen in the Emergency Department: Isaías ortiz 2019 Return to Work: February 23, 2020 Restrictions: Need Release from Doctor CHIKI GREGG February 20, 2020 09:24
[2020-02-20] MEDS ORDERED: NAPR-1071 PO (09:25)
[2020-02-20] MEDS ORDERED: CYCL10TA9 PO (09:25)
[2020-02-20 09:29] VITALS: BP 143/97
[2020-02-20 09:31] LABS: BACTERIA,URINE TRACE /HPF; RBC,URINE RARE /HPF; WBC,URINE 0-2 /HPF
--- OUTSIDE RECORDS SUMMARY | 2020-02-20 09:51 | XMS REPORT ---
Author Author Amrik Chahal Organization [facility] Address [address] [place] [address] Care Team Providers Care Manager Credit Name Role Phone COLTEN Chahal Unavailable PROBLEMS Type Condition ICD9-CM Code SIX51-FO Code Onset Dates Condition S tatus SNOMED Code Problem Mild intermittent asthma without complication J45. 20 Active [id number] ALLERGIES No Information ENCOUNTERS Encounter Location Date Diagnosis [facility] [address] [place] [id number] 10 Oct, 2019 [facility] [address] [id number] Jul, Mild intermittent asthma wit hout complication J45.20 [facility] [address] [id number] 06 Sep, 2018 Acute bacterial conjunctivit is of both eyes H10.33 [facility] [address] [place] [id number] [place] [id number] 12 Nov, 2017 Mild intermittent asthma wit hout complication J45.20 [facility] [address] [place] [id number] [place] [id number] 17 Nov, 2016 Mild persistent asthma witho ut complication J45.30 ; Establishing care with new doctor, encounter for Z71.89 and Screening cholesterol level Z13.220 [place] [address] [address] 15 Nov, 2016 [facility] [address] [place] [id number] [address] [place] [phone] Oct, Mild persistent asthma witho ut complication J45.30 [facility] [address] [place] [address] Sep, Mild persistent asthma witho ut complication J45.30 [facility] [address] [id number] [address] [place] [id number] 14 Jan, 2015 [facility] [address] [id number] [address] [place] [id number] Jan, [facility] [address] [id number] [address] [place] [id number] Oct, [facility] [address] [id number] [address] [place] [phone] Oct, [facility] [address] [id number] [address] [place] [phone] Jan, [facility] [address] [id number] [address] [place] [id number] February, [facility] [address] [id number] [address] [place] [id number] February, IMMUNIZATIONS No Known Immunizations SOCIAL HISTORY Never Assessed REASON FOR VISIT PLAN OF CARE VITAL SIGNS Height 71 in 2014-10-31 Weight 139 lbs 2014-10-31 Temperature 98.8 degrees Fahrenheit 2014-10-31 Heart Rate 80 bpm 2014-10-31 Respiratory Rate 20 2014-10-31 Blood pressure systolic 100 mmHg 2014-10-31 Blood pressure diastolic 70 mmHg 2014-10-31 MEDICATIONS Unknown Medications RESULTS No Results PROCEDURES No Known procedures INSTRUCTIONS MEDICATIONS ADMINISTERED No Known Medications MEDICAL (GENERAL) HISTORY Type Description Date Medical History asthma Surgical History No know Surgical history
== END 2020-02-20 09:31 | disposition home or self-care (01) ==
LOC: EDUNIT# 09:05 → ER 09:06
DX: M54.6 Pain in thoracic spine (principal); J45.909 Unspecified asthma, uncomplicated; Z91.012 Allergy to eggs; Z88.0 Allergy status to penicillin; Z88.2 Allergy status to sulfonamides; Z91.018 Allergy to other foods; Z79.51 Long term (current) use of inhaled steroids; Z79.52 Long term (current) use of systemic steroids; Z82.49 Family history of ischemic heart disease and other diseases of the circulatory system
CPT/HCPCS: 81000; 99282

== ENCOUNTER 2021-10-07 18:54 | Emergency (ER) | payer BC ==
[~2021-10-07] VITALS: Ht 180.3 cm; Wt 63.5 kg
[~2021-10-07 18:54] MED LIST changes: +CYCL10TA25 PO; +NAPR-1071 PO
--- NOTE | 2021-10-07 19:29 | ED Cough/URI ---
General Chief Complaint: COVID19 Suspect/Confirmed Stated Complaint: COUGH, SORE THROAT, COVID EXPOSURE Source: patient Exam Limitations: no limitations History of Present Illness Date Seen by Provider: Oct 07, 2021 Time Seen by Provider: 19:08 Initial Comments Here with report of fever, chills, headache, body aches and cough with sore throat and nausea. Has exposure to Covid on Sunday, 2 days ago. He is vaccinated x1 but no booster. Has had previous Covid testing. Not short of breath currently but is concerned due to his job and is requesting Covid testing. Arrives with significant other who has similar symptoms. Timing/Duration: this morning Severity/Quality: mild, moderate, dry cough Prior Episodes/Possible Cause: no prior episodes Modifying Factors: Improves With Rest Associated Symptoms: cough, fever/chills, muscle aches, sore throat Allergies and Home Medications Allergies Coded Allergies: egg (Unverified Allergy, Severe, RESP PROBLEMS, 08/03/10) Penicillins (Unverified Allergy, Mild, HIVES, 08/03/10) Sulfa (Sulfonamide Antibiotics) (Unverified Allergy, Mild, 08/03/10) Uncoded Allergies: Almonds (Allergy, Mild, 05/08/12) Chicken (Allergy, Unknown, 10/15/19) Patient Home Medication List Home Medication List Reviewed: Yes Albuterol Sulfate (Proair Hfa) 1 Puff Puff, 2 PUFF INH Q4H PRN for SHORTNESS OF BREATH, (Reported) Entered as Reported by: WENDY GROSS on 10/15/19 1441 Cyclobenzaprine HCl (Cyclobenzaprine HCl) 10 Mg Tablet, 10 MG PO Q8H PRN for SPASMS Prescribed by: CHIKI GREGG on 02/20/20 0925 Fluticasone/Salmeterol (Advair Hfa 115-21 Mcg Inhaler) 12 Gm Hfa.aer.ad, 2 PUFF IH BID@ Prescribed by: WILMA MISTRY on 10/17/19 105 Levofloxacin (Levofloxacin) 750 Mg Tablet, 750 MG PO DAILY Prescribed by: WILMA MISTRY on 10/17/19 1057 Montelukast Sodium (Singulair) 10 Mg Tablet, 10 MG PO DAILY Prescribed by: WILMA MISTRY on 10/17/19 1057 Naproxen (Naprosyn) 500 Mg Tablet, 500 MG PO BID Prescribed by: CHIKI GREGG on 02/20/20 09 Prednisone (Prednisone) 10 Mg Tab, 0 PO DAILY Prescribed by: WILMA MISTRY on 10/17/19 105 Review of Systems Review of Systems Constitutional: see HPI, fever EENTM: nose congestion, throat pain Respiratory: see HPI Cardiovascular: no symptoms reported Gastrointestinal: No nausea, No vomiting Musculoskeletal: see HPI Skin: no symptoms reported Past Hmsptls-Pgpsvl-Ozkgzo Hx Patient Social History Tobacco Use?: Yes Tobacco type used: Cigarettes Smoking Status: Current Everyday Smoker Use of E-Cig and/or Vaping dev: No Substance use?: No Alcohol Use?: No Immunizations Up To Date Influenza Vaccine Up-to-Date: No; Not Current First/Initial COVID19 Vaccinat: 2020 Second COVID19 Vaccination Lamine: NONE Third COVID19 Vaccination Date: NONE COVID19 Vaccine 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 oz. kg; 22.00 BMI Method:Stated General Appearance: WD/WN, no apparent distress HEENT: PERRL/EOMI, pharyngeal erythema Neck: non-tender, full range of motion, supple, normal inspection Respiratory: lungs clear, normal breath sounds Cardiovascular: no murmur, tachycardia Neurologic/Psychiatric: alert, oriented x 3 Skin: normal color, warm/dry Progress/Results/Core Measures Suspected Sepsis SIRS Temperature: Pulse: Respiratory Rate: Blood Pressure / Mean: Results/Orders Lab Results Laboratory Tests Test 10/07/21 19:15 Range/Units Influenza Type A (RT-PCR) Not Detected Not Detecte Influenza Type B (RT-PCR) Not Detected Not Detecte SARS-CoV-2 RNA (RT-PCR) Not Detected Not Detecte My Orders Orders - ANITRA CORREA MD Influenza A And B By Pcr (10/07/21 19:18) Covid 19 Inhouse Test (10/07/21 19:18) Vital Signs/I&O 10/07/21 19:09 Temp 36.6 Pulse 122 Resp 20 B/P (MAP) 105/74 (84) Pulse Ox 95 O2 Delivery Room Air Capillary Refill : Progress Note : Progress Note Seen and evaluated. Covid and influenza screening initiated. Monitor patient. 2025: Flu and Covid negative. URI instructions given. Discharged home with return precautions. Patient and family verbalized understanding instructions and agreement with plan. Departure Impression Primary Impression: Viral upper respiratory infection Disposition: HOME, SELF-CARE Condition: Stable Departure-Patient Inst. Decision time for Depature: 20:26 Referrals: [facility] (PCP/Family) Primary Care Physician Patient Instructions: Viral Upper Respiratory Infection, Adult (DC) Add. Discharge Instructions: All discharge instructions reviewed with patient and/or family. Voiced understanding. You may take Tylenol/acetaminophen 1000 mg every 8 hours as needed for fever or pain. You may take ibuprofen 600 mg every 8 hours as needed for fever or pain. You may use Afrin nasal spray or the generic, 12 hour relief, 2 sprays to each nostril twice daily for 3 days only and then stop. Do not use more than 3 days. Follow-up with your DrSuhail in a few days for recheck. Drink plenty of fluids. Return for worse pain, fever, vomiting, weakness, breathing problems or other concerns as needed. Continue to wear a mask while in public. ANITRA CORREA MD Oct 07, 2021 19:29
[2021-10-07 20:33] VITALS: BP 113/68
== END 2021-10-07 20:33 | disposition home or self-care (01) ==
LOC: EDUNIT# 18:54 → ER 19:01
DX: J06.9 Acute upper respiratory infection, unspecified (principal); J45.909 Unspecified asthma, uncomplicated; F17.210 Nicotine dependence, cigarettes, uncomplicated; Z20.822 Contact with and (suspected) exposure to COVID-19; Z88.0 Allergy status to penicillin; Z88.2 Allergy status to sulfonamides; Z79.51 Long term (current) use of inhaled steroids; Z79.52 Long term (current) use of systemic steroids
CPT/HCPCS: 87636; 99283

== ENCOUNTER 2022-12-27 19:40 | Observation (INO) | payer OTHER ==
[~2022-12-27] VITALS: Ht 177.8 cm; Wt 61.4 kg
[~2022-12-27 19:40] MED LIST changes: +ALBU8.5H6 INH; +LEVO750T PO; -LEVO750T39 PO; -RT-ALBUINH INH
[2022-12-27] MEDS ORDERED: methylPREDNISolone 125 MG (Solu-MEDROL) VIAL IV STA (19:50)
[2022-12-27] MEDS ORDERED: RT-ALBUTEROL/IPRATROPIUM 3 ML (DUONEB) VIAL INH ONE (20:00)
[2022-12-27 20:02] LABS: BASOPHILS # (AUTO) 0.1 10^3/uL (0.0-0.1); BASOPHILS % (AUTO) 1 % (0-10); EOSINOPHILS # (AUTO) 1.4 10^3/uL (0.0-0.3); EOSINOPHILS % (AUTO) 12 % (0-10); HEMATOCRIT 44 % (40-54); HEMOGLOBIN 15.3 g/dL (13.3-17.7); LYMPHOCYTES # (AUTO) 4.6 10^3/uL (1.0-4.0); LYMPHOCYTES % (AUTO) 42 % (12-44); MEAN CORPUSCULAR HEMOGLOBIN 30 pg (25-34); MEAN CORPUSCULAR HGB CONC 35 g/dL (32-36); MEAN CORPUSCULAR VOLUME 86 fL (80-99); MONOCYTES # (AUTO) 1.1 10^3/uL (0.0-1.0); MONOCYTES % (AUTO) 10 % (0-12); NEUTROPHILS # (AUTO) 3.7 10^3/uL (1.8-7.8); NEUTROPHILS % (AUTO) 34 % (42-75); PLATELET COUNT 217 10^3/uL (130-400); WHITE BLOOD COUNT 10.9 10^3/uL (4.3-11.0)
[2022-12-27 20:07] LABS: ALBUMIN 4.3 GM/DL (3.2-4.5); CHLORIDE 106 MMOL/L (98-107); POTASSIUM 4.2 MMOL/L (3.6-5.0); SODIUM 141 MMOL/L (135-145)
[2022-12-27 20:08] LABS: CALCIUM 8.9 MG/DL (8.5-10.1)
[2022-12-27 20:09] LABS: GLUCOSE 112 MG/DL (70-105); TOTAL PROTEIN 7.1 GM/DL (6.4-8.2)
[2022-12-27 20:10] LABS: CARBON DIOXIDE 24 MMOL/L (21-32)
[2022-12-27 20:11] LABS: BILIRUBIN,TOTAL 0.4 MG/DL (0.1-1.0)
[2022-12-27 20:13] LABS: ALKALINE PHOSPHATASE 68 U/L (40-136); CREATININE SERUM 1.26 MG/DL (0.60-1.30); GFR ESTIMATED 73
[2022-12-27 20:14] LABS: BUN/CREATININE RATIO 12
[2022-12-27 20:15] LABS: MAGNESIUM 2.3 MG/DL (1.6-2.4)
[2022-12-27 20:16] LABS: ALANINE AMINOTRANSFERASE 22 U/L (0-55); CREATINE KINASE 208 U/L (30-200)
[2022-12-27 20:24] LABS: CREATINE KINASE MB 3.7 NG/ML (<6.6)
--- NOTE | 2022-12-27 20:24 | Diagnostic Imaging Report ---
INDICATION: 42-year-old male with asthma, cough and chest tightness. COMPARISONS: 10/16/2019. FINDINGS: Single view chest shows the cardiac contour to be normal. There is COPD with hyperexpanded lungs with air trapping. Some prominent central lung markings are seen. There is no consolidation, effusion or pneumothorax. Soft tissues and bony thorax are unremarkable. IMPRESSION: Hyperexpanded lungs with air trapping associated with COPD and probably sequela of asthma. No consolidations are seen. There is no effusion or pneumothorax. Dictated by: Dictated on workstation # [id number]
[2022-12-27 20:26] LABS: ERYTHROCYTE SEDIMENTATION RATE 2 MM/HR (0-15)
[2022-12-27 20:36] LABS: TSH (THYROID ANALYZER) 2.43 UIU/ML (0.35-4.94)
[2022-12-27] MEDS ORDERED: LACTATED RINGERS 1,000 ML IV ONE (20:45)
--- NOTE | 2022-12-27 20:58 | ED Respiratory ---
General Chief Complaint: Respiratory Problems Stated Complaint: ASTHMA ATTACK Nursing Triage Note: PT AMB TO RM 3 W C/O ASTHMA ATTACK AND COUGH SX 1730 THIS PM. PT REPORTS CHEST TIGHTNESS, DENIES CP. STATES HE USED HIS ALBUTEROL INH >5X BUT DID NOT GET ANY RELIEF FROM IT. PT A&OX4. Allergies and Home Medications Allergies Coded Allergies: egg (Unverified Allergy, Severe, RESP PROBLEMS, 08/03/10) Penicillins (Unverified Allergy, Mild, HIVES, 08/03/10) Sulfa (Sulfonamide Antibiotics) (Unverified Allergy, Mild, 08/03/10) Uncoded Allergies: Almonds (Allergy, Mild, 05/08/12) Chicken (Allergy, Unknown, 10/15/19) Patient Home Medication List Albuterol Sulfate (Ventolin Hfa) 1 Puff Puff, 2 PUFF INH Q4H PRN for SHORTNESS OF BREATH, (Reported) Entered as Reported by: WENDY GROSS on 10/15/19 1441 Cyclobenzaprine HCl (Cyclobenzaprine HCl) 10 Mg Tablet, 10 MG PO Q8H PRN for SPASMS Prescribed by: CHIKI GREGG on 02/20/20 0925 Fluticasone/Salmeterol (Advair Hfa 115-21 Mcg Inhaler) 12 Gm Hfa.aer.ad, 2 PUFF IH BID@ Prescribed by: WILMA MISTRY on 10/17/19 105 Levofloxacin (Levofloxacin) 750 Mg Tablet, 750 MG PO DAILY Prescribed by: WILMA MISTRY on 10/17/19 1057 Montelukast Sodium (Singulair) 10 Mg Tablet, 10 MG PO DAILY Prescribed by: WILMA MISTRY on 10/17/19 105 Naproxen (Naprosyn) 500 Mg Tablet, 500 MG PO BID Prescribed by: CHIKI GREGG on 02/20/20 0925 Prednisone (Prednisone) 10 Mg Tab, 0 PO DAILY Prescribed by: WILMA MISTRY on 10/17/19 1057 Past Zihquja-Xqncar-Miekph Hx Patient Social History Tobacco Use?: Yes Smoking Status: Former Smoker Use of E-Cig and/or Vaping dev: No Substance use?: No Alcohol Use?: No Immunizations Up To Date Influenza Vaccine Up-to-Date: No; Not Current First/Initial COVID19 Vaccinat: 2020 Second COVID19 Vaccination Lamine: NONE Third COVID19 Vaccination Date: NONE 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 oz. kg; 18.00 BMI Method:Stated Progress/Results/Core Measures Suspected Sepsis SIRS Temperature: Pulse: 133 Respiratory Rate: 24 Laboratory Tests 12/27/22 19:50: White Blood Count 10.9 Blood Pressure 129 /93 Mean: 105 Laboratory Tests 12/27/22 19:50: Creatinine 1.26, Platelet Count 217, Total Bilirubin 0.4 Results/Orders Lab Results Laboratory Tests Test 12/27/22 19:50 12/27/22 20:12 Range/Units White Blood Count 10.9 4.3-11.0 10^3/uL Red Blood Count 5.08 4.30-5.52 10^6/uL Hemoglobin 15.3 13.3-17.7 g/dL Hematocrit 44 40-54 % Mean Corpuscular Volume 86 80-99 fL Mean Corpuscular Hemoglobin 30 25-34 pg Mean Corpuscular Hemoglobin Concent 35 32-36 g/dL Red Cell Distribution Width 12.0 10.0-14.5 % Platelet Count 217 130-400 10^3/uL Mean Platelet Volume 10.0 9.0-12.2 fL Immature Granulocyte % (Auto) 0 % Neutrophils (%) (Auto) 34 L 42-75 % Lymphocytes (%) (Auto) 42 12-44 % Monocytes (%) (Auto) 10 0-12 % Eosinophils (%) (Auto) 12 H 0-10 % Basophils (%) (Auto) 1 0-10 % Neutrophils # (Auto) 3.7 1.8-7.8 10^3/uL Lymphocytes # (Auto) 4.6 H 1.0-4.0 10^3/uL Monocytes # (Auto) 1.1 H 0.0-1.0 10^3/uL Eosinophils # (Auto) 1.4 H 0.0-0.3 10^3/uL Basophils # (Auto) 0.1 0.0-0.1 10^3/uL Immature Granulocyte # (Auto) 0.0 0.0-0.1 10^3/uL Erythrocyte Sedimentation Rate 2 0-15 MM/HR Sodium Level 141 135-145 MMOL/L Potassium Level 4.2 3.6-5.0 MMOL/L Chloride Level 106 98-107 MMOL/L Carbon Dioxide Level 24 21-32 MMOL/L Anion Gap 11 5-14 MMOL/L Blood Urea Nitrogen 15 7-18 MG/DL Creatinine 1.26 0.60-1.30 MG/DL Estimat Glomerular Filtration Rate 73 BUN/Creatinine Ratio 12 Glucose Level 112 H 70-105 MG/DL Calcium Level 8.9 8.5-10.1 MG/DL Corrected Calcium 8.7 8.5-10.1 MG/DL Magnesium Level 2.3 1.6-2.4 MG/DL Total Bilirubin 0.4 0.1-1.0 MG/DL Aspartate Amino Transf (AST/SGOT) 17 5-34 U/L Alanine Aminotransferase (ALT/SGPT) 22 0-55 U/L Alkaline Phosphatase 68 40-136 U/L Total Creatine Kinase 208 H 30-200 U/L Creatine Kinase MB 3.7 <6.6 NG/ML Myoglobin 86.1 10.0-92.0 NG/ML Troponin I < 0.028 <0.028 NG/ML C-Reactive Protein High Sensitivity 0.03 0.00-0.50 MG/DL B-Type Natriuretic Peptide 17.8 <100.0 PG/ML Total Protein 7.1 6.4-8.2 GM/DL Albumin 4.3 3.2-4.5 GM/DL TSH [place] Testing 2.43 0.35-4.94 UIU/ML Influenza Type A (RT-PCR) Not Detected Not Detecte Influenza Type B (RT-PCR) Not Detected Not Detecte SARS-CoV-2 RNA (RT-PCR) Not Detected Not Detecte My Orders Orders - COLLEEN HERMAN DO Ed Iv/Invasive Line Start (12/27/22 19:50) Ekg Tracing (12/27/22 19:50) O2 (12/27/22 19:50) Monitor-Rhythm Ecg Trace Only (12/27/22 19:50) Chest 1 View, Ap/Pa Only (12/27/22 19:50) Bnp Issa (12/27/22 19:50) Cbc With Automated Diff (12/27/22 19:50) Comprehensive Metabolic Panel (12/27/22 19:50) Creatine Kinase (12/27/22 19:50) Creatine Kinase Mb (12/27/22 19:50) Hs C Reactive Protein (12/27/22 19:50) Fibrin Degradation Products (12/27/22 19:50) Magnesium (12/27/22 19:50) Protime With Inr (12/27/22 19:50) Partial Thromboplastin Time (12/27/22 19:50) Thyroid Analyzer (12/27/22 19:50) Ua Culture If Indicated (12/27/22 19:50) Erythrocyte Sedimentation Rate (12/27/22 19:50) Myoglobin Serum (12/27/22 19:50) Troponin I [place] (12/27/22 19:50) Covid 19 Inhouse Test (12/27/22 19:50) Influenza A And B By Pcr (12/27/22 19:50) Isolation Central Supply Req (12/27/22 19:50) Albuterol/Ipra Inhalation Soln (Duoneb I (12/27/22 20:00) Dexamethasone Injection (Decadron Injec (12/27/22 20:00) Rt Request For Service (12/27/22 19:50) Methylprednisolone Sod Succ (Solu-Medrol (12/27/22 19:50) Svn Small Volume Nebulizer (12/27/22 19:50) Manual Differential (12/27/22 19:50) Ed Admission (Communication) (12/27/22 20:19) Ed Iv/Invasive Line Start (12/27/22 20:31) Lactated Ringers (Lr 1000 Ml Iv Solution (12/27/22 20:45) Medications Given in ED Current Medications Medications Dose Ordered Sig/Mayra Route Start Time Stop Time Status Last Admin Dose Admin Albuterol/ Ipratropium 3 ml ONCE ONCE INH 12/27/22 20:00 12/27/22 20:01 DC 12/27/22 20:07 3 ML Dexamethasone Sodium Phosphate 20 mg ONCE ONCE IH 12/27/22 20:00 12/27/22 20:01 DC 12/27/22 20:07 20 MG Lactated Ringer's 1,000 ml @ 0 mls/hr Q0M ONCE IV 12/27/22 20:45 12/27/22 20:46 DC 12/27/22 20:54 1,000 MLS/HR Vital Signs/I&O 12/27/22 12/27/22 12/27/22 12/27/22 19:43 20:00 20:00 20:08 Temp 37.3 Pulse 133 Resp 24 B/P (MAP) 129/93 (105) Pulse Ox 93 95 95 O2 Delivery Room Air Room Air Nasal Cannula Nasal Cannula O2 Flow Rate 2.00 1.00 Capillary Refill : Less Than 3 Seconds Blood Pressure Mean: 105 Progress Note : Progress Note PPE WORN COVID AND FLU Departure Communication (Admissions) 2012--SPOKE WITH DR. JONES, HOSPITALIST FOR [facility] [place]. ACCEPTS PT FOR ADMIT. SHE WILL DO ADMIT ORDERS. Impression Primary Impression: Acute respiratory failure with hypoxia Additional Impression: Asthma exacerbation Disposition: ADMITTED INPATIENT Condition: Improved Admissions Decision to Admit Reason: Admit from ER (General) Decision to Admit/Date: Dec 27, 2022 Time/Decision to Admit Time: 20:15 Departure-Patient Inst. Referrals: [facility] (PCP/Family) Primary Care Physician COLLEEN HERMAN DO Dec 27, 2022 20:58
[2022-12-27 21:12] LABS: PARTIAL THROMBOPLASTIN TIME 28 SEC (24-35); PROTHROMBIN TIME PATIENT 13.2 SEC (12.2-14.7)
[2022-12-27 21:26] LABS: BILIRUBIN,URINE NEGATIVE (NEGATIVE); CLARITY,URINE CLEAR; COLOR,URINE YELLOW; GLUCOSE, URINE (UA) NEGATIVE (NEGATIVE); KETONES,URINE NEGATIVE (NEGATIVE); LEUKOCYTE ESTERASE ,URINE NEGATIVE (NEGATIVE); NITRITE,URINE NEGATIVE (NEGATIVE); PROTEIN,URINE NEGATIVE (NEGATIVE)
[2022-12-27 21:32] VITALS: BP 121/84
[2022-12-27 21:37] LABS: BACTERIA,URINE NEGATIVE /HPF; SQUAMOUS EPITHELIAL CELL,UR 0-2 /HPF
[2022-12-27 21:44] LABS: FIBRIN DEGRADATION PRODUCTS <= 0.27 UG/ML (0.00-0.49)
[2022-12-27] MEDS ORDERED: diphenhydrAMINE 50 MG/ML INJ (BENADRYL) IVP PRN (21:45)
[2022-12-27] MEDS ORDERED: diphenhydrAMINE 25 MG TAB (BENADRYL) PO PRN (21:45)
[2022-12-27] MEDS ORDERED: BISACODYL 10 MG SUPP (DULCOLAX) PR PRN (21:45)
[2022-12-27] MEDS ORDERED: polyethylene glycoL POWDER 17 GM (MIRALAX) PACK PO PRN (21:45)
[2022-12-27] MEDS ORDERED: ANTACID SUSP 30 ML UDC (MYLANTA) PO PRN (21:45)
[2022-12-27] MEDS ORDERED: MILK OF MAGNESIA 400 MG/5 ML 30 ML UDC PO PRN (21:45)
[2022-12-27] MEDS ORDERED: HYDROmorphone 2 MG/ML VIAL (DILAUDID) IV PRN (21:45)
[2022-12-27] MEDS ORDERED: CALCIUM CARBONATE 500 MG (TUMS) TAB.CHEW PO PRN (21:45)
[2022-12-27] MEDS ORDERED: LACTULOSE SYRUP 10GM/15ML (ENULOSE) 30ML UDC PO PRN (21:45)
[2022-12-27] MEDS ORDERED: ACETAMINOPHEN 325 MG TABLET PO PRN (21:45)
[2022-12-27] MEDS ORDERED: cloNIDine 0.1 MG (CATAPRES) TAB PO PRN (21:45)
[2022-12-27] MEDS ORDERED: ONDANSETRON 4 MG (ZOFRAN) ORAL DISSOLVE TAB PO PRN (21:45)
[2022-12-27] MEDS ORDERED: ALPRAZolam 0.5 MG (XANAX) TAB PO PRN (21:45)
[2022-12-27] MEDS ORDERED: ONDANSETRON 4 MG/2 ML (SDV) Z0FRAN IV PRN (21:45)
[2022-12-27] MEDS ORDERED: MELATONIN 3 MG TABLET PO PRN (21:45)
[2022-12-27 21:58] LABS: EOSINOPHILS % (MANUAL) 5 %; LYMPHOCYTES % (MANUAL) 47 %; MONOCYTES % (MANUAL) 7 %; NEUTROPHILS % (MANUAL) 41 %; PLATELET ESTIMATE NORMAL; RBC MORPH NORMAL
[2022-12-27] MEDS ORDERED: ENOXAPARIN INJECTION 30 MG/0.3 ML SYR SC SCH (22:00)
[2022-12-27] MEDS ORDERED: cefTRIAXone 1 GM PRE-MIX 50 ML IV SCH (22:00)
[2022-12-27] MEDS ORDERED: RT-ALBUTEROL SULF 2.5 MG/3 ML PRE-MIX VIAL INH PRN (22:00)
[2022-12-27] MEDS: RT-ALBUTEROL SULF 2.5 MG/3 ML PRE-MIX VIAL INH SCH (22:46)
[2022-12-28] MEDS: RT-ALBUTEROL SULF 2.5 MG/3 ML PRE-MIX VIAL INH SCH ×3 (02:15→11:28)
[2022-12-28] MEDS: methylPREDNISolone 40 MG/ML (Solu-MEDROL) VIAL IV SCH ×2 (02:27→08:07)
[2022-12-28 03:20] VITALS: BP 96/69
[2022-12-28 05:11] LABS: BASOPHILS % (AUTO) 0 % (0-10); EOSINOPHILS % (AUTO) 0 % (0-10); HEMATOCRIT 45 % (40-54); LYMPHOCYTES # (AUTO) 0.6 10^3/uL (1.0-4.0); LYMPHOCYTES % (AUTO) 10 % (12-44); MEAN CORPUSCULAR HEMOGLOBIN 29 pg (25-34); MEAN CORPUSCULAR HGB CONC 34 g/dL (32-36); MEAN CORPUSCULAR VOLUME 87 fL (80-99); MEAN PLATELET VOLUME 10.4 fL (9.0-12.2); MONOCYTES % (AUTO) 1 % (0-12); NEUTROPHILS # (AUTO) 4.9 10^3/uL (1.8-7.8); NEUTROPHILS % (AUTO) 88 % (42-75); PLATELET COUNT 203 10^3/uL (130-400); WHITE BLOOD COUNT 5.5 10^3/uL (4.3-11.0)
[2022-12-28 05:31] LABS: ALBUMIN 4.2 GM/DL (3.2-4.5); POTASSIUM 4.1 MMOL/L (3.6-5.0)
[2022-12-28 05:33] LABS: CALCIUM 9.2 MG/DL (8.5-10.1)
[2022-12-28 05:34] LABS: TOTAL PROTEIN 6.9 GM/DL (6.4-8.2)
[2022-12-28 05:36] LABS: BILIRUBIN,TOTAL 0.3 MG/DL (0.1-1.0)
[2022-12-28 05:38] LABS: CREATININE SERUM 0.95 MG/DL (0.60-1.30)
[2022-12-28 08:00] VITALS: BP 108/67
[2022-12-28] MEDS ORDERED: RT--FLUTICASONE/SALMETEROL 113-14 (AIRDUO RespiCLICK) IH SCH (08:00)
[2022-12-28] MEDS ORDERED: SENNOSIDES 8.6 MG (SENOKOT) TAB PO SCH (09:00)
[2022-12-28] MEDS ORDERED: LORATADINE (CLARITIN) 10 MG TAB PO SCH (09:00)
[2022-12-28] MEDS ORDERED: DOCUSATE SODIUM 100 MG (COLACE) CAP PO SCH (09:00)
[2022-12-28] MEDS ORDERED: LORA10TA7 PO (12:14)
[2022-12-28] MEDS ORDERED: ALBU8.5H6 INH (12:21)
[2022-12-28] MEDS ORDERED: PRED10TA22 PO (12:21)
[2022-12-28] MEDS ORDERED: CEFD300C3 PO (12:21)
[2022-12-28] MEDS ORDERED: FLUT1AER4 IH (12:21)
[2022-12-28] MEDS ORDERED: MONT-40 PO (12:21)
--- NOTE | 2022-12-28 13:16 | Short Stay Summary ---
[facility] 12/28/22 1316: History of Present Illness History of Present Illness Reason for visit/HPI This is a 42 y/o male with a PMH of asthma and seasonal allergies who presented to the ED via EMS yesterday for asthma attack. He says he was working on spring cleaning in his house sweeping floors and moving furniture all around when he started feeling chest tightness and shortness of breath. He uses an albuterol inhaler for his asthma anywhere from 0-2x per day. With this episode he says he attempted 5 puffs with his inhaler without any improvement/relief in symptoms and decided to call EMS. He says they found his O2 sats to be in the 70% and were surprised he was able to call himself in. He was admitted from the ER for asthma exacerbation/status asthmaticus to the step-down unit. He notes he previously used to take Advair but now only takes claritin and his albuterol at home. He says that a similar episode occurred several years ago when he was cleaning in the Spring/Summer. He says he has a lot less symptoms in the winter. He does endorse vaping but denies smoking tobacco currently, drinking alcohol, or any other recreational drug use. He denies other medical problems or surgeries. This AM he is feeling much better. He is sitting up in bed and is breathing well. He was on 2 L of O2 via NC overnight satting in the mid-high 90% and his nurse took off his NC early this AM and he was satting 91-95% and he feels fine without it. He's been standing at the side of bed to use urinal but hasn't been allowed to walk to the bathroom yet but he said standing he feels fine. He ate last night without issue. No more chest tightness/pain is endorsed. He would like to try to go home today. Date of Admission Dec 27, 2022 at 21:14 Date of Discharge 12/28/22 Time Seen by Provider: 09:20 Attending Physician [place] Admitting Physician Admitting Physician: Mera Jones DO Attending Physician: Mera Jones DO Consult Allergies and Home Medications Allergies Coded Allergies: egg (Unverified Allergy, Severe, RESP PROBLEMS, 08/03/10) Penicillins (Unverified Allergy, Mild, HIVES, 08/03/10) Sulfa (Sulfonamide Antibiotics) (Unverified Allergy, Mild, 08/03/10) Uncoded Allergies: Almonds (Allergy, Mild, 05/08/12) Chicken (Allergy, Unknown, 10/15/19) Patient Home Medication List Albuterol Sulfate (Ventolin Hfa) 1 Puff Puff, 2 PUFF INH Q4H PRN for SHORTNESS OF BREATH, (Reported) Entered as Reported by: WENDY GROSS on 10/15/19 1441 Last Action: Reviewed Albuterol Sulfate (Ventolin Hfa) 90 Mcg Hfa.aer.ad, 2 PUFF INH Q4H PRN for WHEEZING Prescribed by: MERA JONES on 12/28/22 1221 Cefdinir (Cefdinir) 300 Mg Capsule, 300 MG PO BID Prescribed by: MERA JONES on 12/28/22 1221 Fluticasone/Salmeterol (Fluticasone-Salmeterol 113-14) 113 Mcg-14 Mcg/Actuation Aer.pow.ba, 2 EACH IH RTBID Prescribed by: MERA JONES on 12/28/22 1221 Loratadine (Loratadine) 10 Mg Tablet, 10 MG PO, (Reported) Entered as Reported by: GENARO CHRIS on 12/28/22 1214 Last Action: Reviewed Montelukast Sodium (Montelukast Sodium) 10 Mg Tablet, 10 MG PO HS Prescribed by: MERA JONES on 12/28/22 1221 Prednisone (Prednisone) 10 Mg Tab.ds.pk, 10 MG PO DAILY Prescribed by: MERA JONES on 12/28/22 1221 Discontinued Medications Cyclobenzaprine HCl (Cyclobenzaprine HCl) 10 Mg Tablet, 10 MG PO Q8H PRN for SPASMS Discontinued Reason: No Longer Taking Prescribed by: CHIKI GREGG on 02/20/20 0925 Last Action: Discontinued Fluticasone/Salmeterol (Advair Hfa 115-21 Mcg Inhaler) 12 Gm Hfa.aer.ad, 2 PUFF IH BID@ Discontinued Reason: No Longer Taking Prescribed by: WILMA MISTRY on 10/17/19 1057 Last Action: Discontinued Levofloxacin (Levofloxacin) 750 Mg Tablet, 750 MG PO DAILY Discontinued Reason: No Longer Taking Prescribed by: WILMA MISTRY on 10/17/191056 Last Action: Discontinued Montelukast Sodium (Singulair) 10 Mg Tablet, 10 MG PO DAILY Discontinued Reason: No Longer Taking Prescribed by: WILMA MISTRY on 10/17/191056 Last Action: Discontinued Naproxen (Naprosyn) 500 Mg Tablet, 500 MG PO BID Discontinued Reason: No Longer Taking Prescribed by: CHIKI GREGG on 02/20/20 09 Last Action: Discontinued Prednisone (Prednisone) 10 Mg Tab, 0 PO DAILY Discontinued Reason: No Longer Taking Prescribed by: WILMA MISTRY on 10/17/191056 Last Action: Discontinued Past Ljvfoql-Hhahox-Jlsbli Hx Patient Social History Smoking Status: Never a Smoker 2nd Hand Smoke Exposure: No Recent Hopitalizations: No Have you traveled recently?: No Alcohol Use?: No Pt feels they are or have been: No Seasonal Allergies Seasonal Allergies: No Surgeries No Respiratory Yes Asthma Cardiovascular No Neurological No Genitourinary No Musculoskeletal No Endocrine History of Endocrine Disorders: No HEENT History of HEENT Disorders: No Cancer No Psychosocial History of Psychiatric Problem: No Integumentary History of Skin or Integumenta: No Family Medical History Significant Family History: Heart Disease Review of Systems Constitutional: no symptoms reported EENTM: no symptoms reported Respiratory: see HPI Cardiovascular: see HPI Gastrointestinal: no symptoms reported Genitourinary: no symptoms reported Musculoskeletal: no symptoms reported Skin: no symptoms reported Psychiatric/Neurological: No Symptoms Reported Physical Exam Vital Signs Vital Signs - First Documented 12/27/22 12/27/22 12/27/22 19:43 20:00 21:52 Temp 37.3 Pulse 133 Resp 24 B/P (MAP) 129/93 (105) Pulse Ox 93 O2 Delivery Room Air O2 Flow Rate 2.00 FiO2 2 Capillary Refill : Less Than 3 Seconds Height, Weight, BMI Height: '" Weight: lbs. oz. kg; 19.42 BMI Method:Stated General Appearance: No Apparent Distress, WD/WN Eyes: Bilateral Eye PERRL, Bilateral Eye EOMI HEENT: PERRL/EOMI, Pharynx Normal Neck: Full Range of Motion, Non Tender, Supple Respiratory: Wheezing (Very minimal wheezing apparent in bases. Otherwise lung hernandez are clear to auscultation with good air movement. ) Cardiovascular: Regular Rate, Rhythm, No Edema, No Murmur Gastrointestinal: Normal Bowel Sounds, Non Tender, Soft Back: Normal Inspection Neurologic/Psychiatric: Alert, Oriented x3, Normal Mood/Affect Skin: Normal Color, Warm/Dry Lymphatic: No Adenopathy Short Stay Diagnosis Conclusion Labs Laboratory Tests 12/27/22 19:50: White Blood Count 10.9, Red Blood Count 5.08, Hemoglobin 15.3, Hematocrit 44, Mean Corpuscular Volume 86, Mean Corpuscular Hemoglobin 30, Mean Corpuscular Hemoglobin Concent 35, Red Cell Distribution Width 12.0, Platelet Count 217, Mean Platelet Volume 10.0, Immature Granulocyte % (Auto) 0, Neutrophils (%) (Auto) 34L, Lymphocytes (%) (Auto) 42, Monocytes (%) (Auto) 10, Eosinophils (%) (Auto) 12H, Basophils (%) (Auto) 1, Neutrophils # (Auto) 3.7, Lymphocytes # (Auto) 4.6H, Monocytes # (Auto) 1.1H, Eosinophils # (Auto) 1.4H, Basophils # (Auto) 0.1, Immature Granulocyte # (Auto) 0.0, Neutrophils % (Manual) 41, Lymphocytes % (Manual) 47, Monocytes % (Manual) 7, Eosinophils % (Manual) 5, Platelet Estimate NORMAL, Blood Morphology Comment NORMAL, Erythrocyte Sedimentation Rate 2, Prothrombin Time 13.2, INR Comment 1.0, Activated Partial Thromboplast Time 28, D-Dimer <= 0.27, Sodium Level 141, Potassium Level 4.2, Chloride Level 106, Carbon Dioxide Level 24, Anion Gap 11, Blood Urea Nitrogen 15, Creatinine 1.26, Estimat Glomerular Filtration Rate 73, BUN/Creatinine Ratio 12, Glucose Level 112H, Calcium Level 8.9, Corrected Calcium 8.7, Magnesium Level 2.3, Total Bilirubin 0.4, Aspartate Amino Transf (AST/SGOT) 17, Alanine Aminotransferase (ALT/SGPT) 22, Alkaline Phosphatase 68, Total Creatine Kinase 208H, Creatine Kinase MB 3.7, Myoglobin 86.1, Troponin I < 0.028, C-Reactive Protein High Sensitivity 0.03, B-Type Natriuretic Peptide 17.8, Total Protein 7.1, Albumin 4.3, TSH Mckenzie Testing 2.43 12/27/22 20:12: Influenza Type A (RT-PCR) Not Detected, Influenza Type B (RT-PCR) Not Detected, SARS-CoV-2 RNA (RT-PCR) Not Detected 12/27/22 21:18: Urine Color YELLOW, Urine Clarity CLEAR, Urine pH 6.0, Urine Specific Watson 1.010L, Urine Protein NEGATIVE, Urine Glucose (UA) NEGATIVE, Urine Ketones NEGATIVE, Urine Nitrite NEGATIVE, Urine Bilirubin NEGATIVE, Urine Urobilinogen 0.2, Urine Leukocyte Esterase NEGATIVE, Urine RBC (Auto) NEGATIVE, Urine RBC NONE, Urine WBC NONE, Urine Squamous Epithelial Cells 0-2, Urine Crystals NONE, Urine Bacteria NEGATIVE, Urine Casts NONE, Urine Mucus NEGATIVE, Urine Culture Indicated NO 12/28/22 04:42: White Blood Count 5.5, Red Blood Count 5.12, Hemoglobin 15.0, Hematocrit 45, Mean Corpuscular Volume 87, Mean Corpuscular Hemoglobin 29, Mean Corpuscular Hemoglobin Concent 34, Red Cell Distribution Width 11.9, Platelet Count 203, Mean Platelet Volume 10.4, Immature Granulocyte % (Auto) 0, Neutrophils (%) (Auto) 88H, Lymphocytes (%) (Auto) 10L, Monocytes (%) (Auto) 1, Eosinophils (%) (Auto) 0, Basophils (%) (Auto) 0, Neutrophils # (Auto) 4.9, Lymphocytes # (Auto) 0.6L, Monocytes # (Auto) 0.0, Eosinophils # (Auto) 0.0, Basophils # (Auto) 0.0, Immature Granulocyte # (Auto) 0.0, Sodium Level 140, Potassium Level 4.1, Chloride Level 106, Carbon Dioxide Level 22, Anion Gap 12, Blood Urea Nitrogen 12, Creatinine 0.95, Estimat Glomerular Filtration Rate 103, BUN/Creatinine Ratio 13, Glucose Level 164H, Calcium Level 9.2, Corrected Calcium 9.0, Total Bilirubin 0.3, Aspartate Amino Transf (AST/SGOT) 13, Alanine Aminotransferase (ALT/SGPT) 21, Alkaline Phosphatase 62, Total Protein 6.9, Albumin 4.2 Radiology NAME: RAYMOND MONRO[facility] REC#: [id number] PT STATUS: REG ER : 1980 PHYSICIAN: COLLEEN HERMAN DO ADMIT DATE: 12/27/22/ER Signed Date of Exam:12/27/22 CHEST 1 VIEW, AP/PA ONLY INDICATION: 42-year-old male with asthma, cough and chest tightness. COMPARISONS: 10/16/2019. FINDINGS: Single view chest shows the cardiac contour to be normal. There is COPD with hyperexpanded lungs with air trapping. Some prominent central lung markings are seen. There is no consolidation, effusion or pneumothorax. Soft tissues and bony thorax are unremarkable. IMPRESSION: Hyperexpanded lungs with air trapping associated with COPD and probably sequela of asthma. No consolidations are seen. There is no effusion or pneumothorax. Dictated by: Dictated on workstation # [id number] Dict: 12/27/222013 Trans: 12/27/222042 PJE [id number] Interpreted by: SERGIO OLSON MD Electronically signed by: SERGIO OLSON MD 12/27/222042 Conclusion/Plan Assessment: This is a 42 y/o male who presented for SOB and was admitted for status asthmaticus/asthma exacerbation and is now HD#1. Status asthmaticus Asthma exacerbation Persistent Daily asthma Vaping -CXR c/w asthma/COPD; history of clinical presentation c/w environmental triggers -Pt oxygenation requirements improved, off O2 -VSS -BNP, troponins, D-dimer negative -WBC wnl, afebrile, Flu/COVID negative. -On claritin, steroids, inhalers -Will plan to send patient with Advair, albuterol, steroid taper, and montelukast with close follow-up with PCP -Encouraged cessation of vaping MERA JONES DO 12/29/22 0509: Allergies and Home Medications Allergies Coded Allergies: egg (Unverified Allergy, Severe, RESP PROBLEMS, 08/03/10) Penicillins (Unverified Allergy, Mild, HIVES, 08/03/10) Sulfa (Sulfonamide Antibiotics) (Unverified Allergy, Mild, 08/03/10) Uncoded Allergies: Almonds (Allergy, Mild, 05/08/12) Chicken (Allergy, Unknown, 10/15/19) Patient Home Medication List Home Medication List Reviewed: Yes Albuterol Sulfate (Ventolin Hfa) 1 Puff Puff, 2 PUFF INH Q4H PRN for SHORTNESS OF BREATH, (Reported) Entered as Reported by: WENDY GROSS on 10/15/19 1441 Last Action: Reviewed Albuterol Sulfate (Ventolin Hfa) 90 Mcg Hfa.aer.ad, 2 PUFF INH Q4H PRN for WHEEZING Prescribed by: MERA JONES on 12/28/22 1221 Cefdinir (Cefdinir) 300 Mg Capsule, 300 MG PO BID Prescribed by: MERA JONES on 12/28/22 1221 Fluticasone/Salmeterol (Fluticasone-Salmeterol 113-14) 113 Mcg-14 Mcg/Actuation Aer.pow.ba, 2 EACH IH RTBID Prescribed by: MERA JONES on 12/28/22 1221 Loratadine (Loratadine) 10 Mg Tablet, 10 MG PO, (Reported) Entered as Reported by: GENARO CHRIS on 12/28/22 121 Last Action: Reviewed Montelukast Sodium (Montelukast Sodium) 10 Mg Tablet, 10 MG PO HS Prescribed by: MERA JONES on 12/28/22 122 Prednisone (Prednisone) 10 Mg Tab.ds.pk, 10 MG PO DAILY Prescribed by: MERA JONES on 12/28/22 122 Discontinued Medications Cyclobenzaprine HCl (Cyclobenzaprine HCl) 10 Mg Tablet, 10 MG PO Q8H PRN for SPASMS Discontinued Reason: No Longer Taking Prescribed by: CHIKI GREGG on 02/20/20924 Last Action: Discontinued Fluticasone/Salmeterol (Advair Hfa 115-21 Mcg Inhaler) 12 Gm Hfa.aer.ad, 2 PUFF IH BID@ Discontinued Reason: No Longer Taking Prescribed by: WILMA MISTRY on 10/17/191056 Last Action: Discontinued Levofloxacin (Levofloxacin) 750 Mg Tablet, 750 MG PO DAILY Discontinued Reason: No Longer Taking Prescribed by: WILMA MISTRY on 10/17/191056 Last Action: Discontinued Montelukast Sodium (Singulair) 10 Mg Tablet, 10 MG PO DAILY Discontinued Reason: No Longer Taking Prescribed by: WILMA MISTRY on 10/17/191056 Last Action: Discontinued Naproxen (Naprosyn) 500 Mg Tablet, 500 MG PO BID Discontinued Reason: No Longer Taking Prescribed by: CHIKI GREGG on 02/20/20924 Last Action: Discontinued Prednisone (Prednisone) 10 Mg Tab, 0 PO DAILY Discontinued Reason: No Longer Taking Prescribed by: WILMA MISTRY on 10/17/19 1057 Last Action: Discontinued Past Lajakgd-Lguqht-Yodmux Hx Patient Social History Marrital Status: single Review of Systems Constitutional: see HPI Short Stay Diagnosis Discharge Diagnosis-Short Stay Admission Diagnosis: Status asthmaticus Final Discharge Diagnosis: Status asthmaticus Conclusion Conclusion/Plan DC Supervisory-Addendum Brief Verification & Attestation Participated in pt care: history, MDM, physical Personally performed: exam, history, MDM, supervision of care Care discussed with: Medical Student Procedures: n/a Results interpretation: Verified all documentation Verification and Attestation of Medical Student E/M Service A medical student performed and documented this service in my presence. I reviewed and verified all information documented by the medical student and made modifications to such information, when appropriate. I personally performed the physical exam and medical decision making. Mera Jones, Dec 29, 2022,05:09 [facility] Dec 28, 2022 13:16 MERA JONES DO Dec 29, 2022 05:09
[2022-12-28] MEDS ORDERED: MONTELUKAST 10 MG (SINGULAIR) TAB PO SCH (21:00)
[2022-12-28] MEDS ORDERED: ENOXAPARIN 40 MG/0.4 ML (LOVENOX) SYR SC SCH (22:00)
== END 2022-12-28 13:15 | disposition home or self-care (01) ==
LOC: EDUNIT# 19:40 → ER 19:42 → CSD 21:14
PROVIDERS: ADMIT Internal Medicine; ATTEND Internal Medicine
DX: J45.901 Unspecified asthma with (acute) exacerbation (principal); J96.01 Acute respiratory failure with hypoxia; U07.0 Vaping-related disorder; Z79.899 Other long term (current) drug therapy; Z87.891 Personal history of nicotine dependence
CPT/HCPCS: 71045; 80053 ×2; 81000; 82550; 82553; 83735; 83874; 83880; 84443; 84484; 85007; 85025; 85027; 85379; 85610; 85652; 85730; 86141; 87081; 87636; 93005; 93041; 94640 ×3; 94760; 99284; G0378; 36415; 96372; 96375; 96376